=== PATIENT | female | born 1970 | race Caucasian/White ===

== ENCOUNTER 2022-03-02 07:55 | Outpatient (CLI) | payer BC, SELFPAY ==
[2022-03-02 08:28] LABS: Hematocrit 37.5 % (37.0-47.0); Hemoglobin 12.6 g/dL (12.0-15.0); Mean Corpuscular HGB Conc 33.6 g/dl (32-36); Mean Corpuscular Hemoglobin 31.5 pg (26-34); Mean Corpuscular Volume 93.8 fl (80-100); Mean Platelet Volume 10.2 fl (7.4-10.4); Platelet Count Result 284 k/mm3 (150-375); Red Cell Distribution Width 11.7 % (11.5-14.5); White Blood Count 6.7 K/mm3 (4.5-10.0)
[2022-03-02 09:10] LABS: Alanine Aminotransferase 17 U/L (6-35); Anion Gap 7 mmol/L (8-16); Aspartate Amino Transferase 27 U/L (14-36); Bilirubin,Total 0.5 mg/dL (0.2-1.3); Blood Urea Nitrogen 12 mg/dL (7-17); Carbon Dioxide 28 mmol/L (22-30); Chloride 100 mmol/L (98-107); Estimated Glomerular Filt Rate > 60; Glucose 93 mg/dL (65-110); Potassium 4.3 mmol/L (3.4-5.0); Sodium 135 mmol/L (137-145)
[2022-03-02 09:11] LABS: Albumin Level 4.5 g/dL (3.5-5.1); Alkaline Phosphatase 66 U/L (38-126); Cholesterol 200 mg/dL (0-200); HDL Direct 70 mg/dL; Triglycerides 139 mg/dL (<150)
[2022-03-02 09:17] LABS: Hemoglobin A1C 4.9 % (<5.7)
[2022-03-02 09:21] LABS: LDL Cholesterol Direct 88 mg/dL
[2022-03-02 09:59] LABS: Hepatitis C Virus Antibody Negative (Negative)
== END 2022-03-02 07:56 | disposition home or self-care (01) ==
LOC: ANHLAB 07:59
PROVIDERS: PCP Obstetrics & Gynecology; Visit Provider Family Medicine
DX: Z00.00 Encounter for general adult medical examination without abnormal findings (principal); K21.9 Gastro-esophageal reflux disease without esophagitis; Z11.59 Encounter for screening for other viral diseases
CPT/HCPCS: 36415; 80053; 80061; 83036; 85027; 86803

== ENCOUNTER 2022-04-29 00:22 | Day surgery (SDC) | payer BC, SELFPAY ==
[2022-04-14 13:44] VITALS: BMI 25.1
--- NOTE | 2022-04-28 16:47 | PM.HPGS ---
History of Present Illness History of Present Illness Consent: Risks, benefits, and alternatives have been discussed and questions answered. Patient agrees to proceed with procedure. Chief complaint: neoplasm screening, GERD Narrative: Danita Maza is a 51 year old female is referred because of persistent problems with acid reflux.? She has been on omeprazole for the past year or so.? If she skips a dose she has significant symptoms.? Even staying on it daily, she needs to supplement with [id number] Pepcid once or twice a day.? Certain foods give her a great deal of difficulty, such as pork, coffee, spicy foods.? She denies , nausea, vomiting or chronic abdominal pain.? ? If she has a cup of coffee in the morning she my be okay but if she has a 2nd cup she will be miserable.? When she gets pain, it is primarily in the epigastric area and will last for hours if not all day.? Even adding lemon pepper to her food will cause the symptoms. ? She occasionally has dysphagia or feeling that food is not going down fast, this is mostly when she eats too quickly. She has not had a colonoscopy.? Review of Systems Review of Systems: All systems reviewed & are unremarkable except as noted in HPI and below PMFSH Past Medical History Medical History Allergies Surgical History Surgical History Hx of hysterectomy Hx of prior ablation treatment Hx of tubal ligation Family History Family History Father Diabetes mellitus Hypertension Cerebrovascular accident Mother Asthma Hypertension Depression Social History Social History Smoking status: Former smoker Alcohol intake: current Drinks per week: 12 Alcohol use details: social Substance use: never Substance use type: does not use Living arrangements: with family Spiritual care concerns: No Meds Home Medications and Allergies Home Medications Medication Instructions Recorded Confirmed Type estradiol 2 mg tablet 2 mg PO DAILY 03/22/22 04/29/22 History omeprazole 40 mg capsule,delayed 40 mg PO DAILY 03/22/22 04/29/22 History release Allergies Allergy/AdvReac Type Severity Reaction Status Date / Time cows milk Allergy Nausea and Uncoded 04/29/22 10:08 Vomiting Exam Const: General: alert Orientation/consciousness: patient oriented x3 Resp: Auscultation: clear to auscultation bilaterally Cardio: Rhythm: regular rhythm GI: GI Palp: Yes Soft to palpation and No Tenderness to palpation present (GI) Neuro: General: patient oriented x3 Assessment and Plan Assessment and plan (1) Epigastric pain: Code(s): R10.13 - Epigastric pain Status: Acute Assessment and Plan: EGD with possible biopsy or dilatation or cautery. (2) Encounter for colorectal cancer screening: Code(s): Z12.11 - Encounter for screening for malignant neoplasm of colon; Z12.12 - Encounter for screening for malignant neoplasm of rectum Status: Acute Assessment and Plan: Colonoscopy with possible biopsy or polypectomy or cautery or injection of substances.
[2022-04-29 10:09] VITALS: BP 126/56; PULSE 70; RESP 20; TEMP 36.1; O2SAT 100
[2022-04-29] MEDS: LACTATED RINGERS 1,000 ML 150 ML IV CONT (10:23)
--- NOTE | 2022-04-29 10:39 | P.PNAN_ITS ---
Anes - Initial Pre Proc Eval Procedure: Operation Date: 04/29/22 11:00 Proposed Procedures p Esophagogastroduodenoscopy & Screening Colonoscopy - Keron Lin MD Date/Time: 04/29/22 10:39 Surgeon: Keron Lin MD Pre Op Diagnosis: neoplasm screening, GERD Patient Data Age: 51 Gender: F Height: 1.65 m Weight: 65.6 kg Last Vital Signs Temp 97.0 F L 04/29/22 10:09 Pulse 70 04/29/22 10:09 Resp 20 04/29/22 10:09 BP 126/56 L 04/29/22 10:09 Pulse Ox 100 04/29/22 10:09 O2 Del Method Room Air 04/29/22 10:09 Allergies Allergy/AdvReac Type Severity Reaction Status Date / Time cows milk Allergy Nausea and Uncoded 04/29/22 10:08 Vomiting Home Medications Medication Instructions Recorded Confirmed Type estradiol 2 mg tablet 2 mg PO DAILY 03/22/22 04/29/22 History omeprazole 40 mg capsule,delayed 40 mg PO DAILY 03/22/22 04/29/22 History release Patient hx anesthesia problems: none Family hx anesthesia problems: none Results Review: All pre-operative results and documents have been reviewed as part of the pre- operative evaluation. [facility] Past Medical History Medical History Allergies Surgical History Surgical History Hx of hysterectomy Hx of prior ablation treatment Hx of tubal ligation Family History Family History Father Diabetes mellitus Hypertension Cerebrovascular accident Mother Asthma Hypertension Depression Social History Social History Smoking status: Former smoker Alcohol intake: current Drinks per week: 12 Alcohol use details: social Substance use: never Substance use type: does not use Living arrangements: with family Spiritual care concerns: No Anes - Eval Final PreProcedure Day of Procedure 04/29/22 10:39 Patient weight: normal Heart: regular rate and rhythm Lungs: clear to auscultation Airway: Mallampati scale class II Neurological: alert and oriented Last oral intake: >/= 8 hours ASA classification: II Emergent: no Anesthetic plan: proceed Anesthesia type and monitoring: general GIVS and standard monitoring Results Review: All pre-operative results and documents have been reviewed as part of the pre- operative evaluation. Informed Consent: The patient's anesthetic plan and its attendant risks and benefits were discussed with the patient/family/POA. Questions were solicited and answers provided to the satisfaction of the patient/family/POA.
[2022-04-29] MEDS: BENZOCAINE (*SP) 60 ML SPRAY CAN (HURRICAINE) 1 SPRAY MUCOUS MEM (10:47)
--- NOTE | 2022-04-29 11:16 | SUR.OPER ---
EGD START: 1052; END: 1057. COLONOSCOPY START: 1105; END: 1115.
[2022-04-29 11:20] VITALS: BP 81/43; PULSE 64; RESP 13; O2SAT 99
[2022-04-29 11:30] VITALS: BP 111/88; PULSE 64; RESP 13; O2SAT 99
[2022-04-29 11:40] VITALS: BP 94/57; PULSE 66; RESP 15; O2SAT 100
== END 2022-04-29 11:52 | disposition home or self-care (01) ==
PROVIDERS: PCP Family Medicine; Referring Provider Obstetrics & Gynecology; Visit Provider Internal Medicine Gastroenterology
PROC: 0DJ08ZZ Inspection of Upper Intestinal Tract, Via Natural or Artificial Opening Endoscopic (ICD-10-PCS; CPT 43235; principal; 2022-04-29 11:00)
DX: Z12.11 Encounter for screening for malignant neoplasm of colon (principal); K21.9 Gastro-esophageal reflux disease without esophagitis; Z87.891 Personal history of nicotine dependence; R10.13 Epigastric pain
CPT/HCPCS: 45378; 43239; 87081; 88305; J2704; J7120

== ENCOUNTER 2024-01-29 12:30 | Outpatient (RCR) | payer OTHER, SELFPAY ==
[2023-11-16 12:35] VITALS: BP_SYST 75
--- NOTE | 2023-11-16 16:31 | PTOPEVAL1 ---
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 Pain has decreased since onset. Quick DASH self rating of 43% limitation in activity. She works at the hospital office and computer tasks. With the evaluation: L shoulder with decreased active ROM and strength with poor standing position of shoulder and thoracic area; pain over anterior shoulder/ biceps insertion. Skilled PT services are indicated for treatment of L shoulder tendonitis: modalities to decrease pain, therapeutic exercises to increase ROM and strength of shoulder with education for home exercises and posture correction. Plan of Care Interventions Electrical Stimulation,Hot Pack/Cold Pack,Manual Therapy,Neuro Re-education,Patient Education,Therapeutic Activities,Therapeutic Exercise,Ultrasound,Other Other Interventions taping, dry needling PT Services Indicated Yes Treatment Frequency and 2x/wk for 8 visits total Duration These treatments will address the objective and functional deficits as defined above. The patient will be advanced safely and appropriately in order for the patient to progress towards his/her prior level of function. Additional exercises will be introduced and as well as a comprehensive home exercise program upon discharge, if neede
--- NOTE | 2023-11-16 16:32 | OPREHPOC ---
Outpatient Therapy Plan of Care This is a Multidisciplinary Plan of Care that may contain components documented by all disciplines (PT, OT, and ST.) PT Problem 1 PT Problem #1 Knowledge Deficit PT Goal 1 Goal *indep with HEP PT Problem 2 PT Problem #2 Pain PT Goal 1 Goal 1* pt report pain at worst rating of 3/10 2* pt report times of NO pain 3* self rating of Quick DASH of 20% limitation 4* pt report NO awakening from sleep due to shoulder pain PT Problem 3 PT Problem #3 Impaired Flexibility PT Goal 1 Goal increase active L shoulder ROM to improve self care and home ability standing active ROM: 1* flexion 140' 2* abduction 120' 3* IR- reach behind back, palm to above waist PT Problem 4 PT Problem #4 Impaired Strength PT Goal 1 Goal increase strength of L Shoulder to improve use of L arm for self care, home and work tasks: standing L shoulder motions x 5 reps 1* flexion to 90' with 3# hand weight 2* abduction to 90' with 2# hand weight 3* ER with elbow at side with 3# hand weight
--- NOTE | 2023-12-21 13:59 | OPREHPOC ---
Outpatient Therapy Plan of Care This is a Multidisciplinary Plan of Care that may contain components documented by all disciplines (PT, OT, and ST.) PT Problem 1 PT Problem #1 Knowledge Deficit PT Goal 1 Goal *indep with HEP Target Visit 8 Progress Met Comment 12-21-23 progress met goal continue towards goal PT Goal 2 Target Visit 16 PT Problem 2 PT Problem #2 Pain PT Goal 1 Goal 1* pt report pain at worst rating of 3/10 2* pt report times of NO pain 3* self rating of Quick DASH of 20% limitation 4* pt report NO awakening from sleep due to shoulder pain Target Visit 8 Progress Not Met Comment 12-21-23 progress goals not met continue towards goals PT Goal 2 Target Visit 16 PT Problem 3 PT Problem #3 Impaired Flexibility PT Goal 1 Goal increase active L shoulder ROM to improve self care and home ability standing active ROM: 1* flexion 140' 2* abduction 120' 3* IR- reach behind back, palm to above waist Target Visit 8 Progress Not Met Comment 12-21-23 progress goals not met continue towards goals PT Goal 2 Target Visit 16 PT Problem 4 PT Problem #4 Impaired Strength PT Goal 1 Goal increase strength of L Shoulder to improve use of L arm for self care, home and work tasks: standing L shoulder motions x 5 reps 1* flexion to 90' with 3# hand weight 2* abduction to 90' with 2# hand weight 3* ER with elbow at side with 3# hand weight Target Visit 8 Progress Not Met Comment
--- NOTE | 2023-12-21 13:59 | PTOPPROG ---
Assessment and note entered by Sunitha Dominguez, PT Progress Information Assessment Status Progress Diagnosis L shoulder pain Onset Sep 28, 2023 Subjective Information shoulder is doing better, still have some pain in neck and front of shoulder; have been doing stretches during day and correcting posture; want to continue with more therapy; pain range of 1-5/10;awaken from sleep 2-3x/night Assessment PT Clinical Summary Danita has received 8 PT sessions. Compared to the initial evaluation: pain from 1-7/ 10 to 1-5/10; sleeping is still disrupted by pain with rolling onto her L side, 2-3 x/night; self assessment Quick DASH is worse from 43 to 48% limitation in activity; active ROM of L shoulder has improved slightly, but still limited in all motions and pain with all motions, IR most painful education for HEP, posture and body mechanics. L shoulder AROM: flexion 110', abduction 85', IR- reach behind back, palm to buttock and ER- reach to back of head, palm to behind ear. The goals were partially met. Continue PT treatment. Plan of Care Interventions Electrical Stimulation,Hot Pack/Cold Pack,Manual Therapy,Neuro Re-education,Patient Education,Therapeutic Activities,Therapeutic Exercise,Ultrasound,Other Other Interventions taping PT Services Indicated Yes Treatment Frequency and 1-2x/wk for 8 additional visits Duration These treatments will address the objective and functional deficits as defined above. The patient will be advanced safely and appropriately in order for the patient to progress towards his/her prior level of function. Additional exercises will be introduced and as well as a comprehensive home exercise program upon discharge, if needed, ?to ensure carryover of functional gains achieved in the clinic. This treatment plan has been reviewed and agreement upon by the patient.
--- NOTE | 2023-12-27 12:30 | PCPTNOTE ---
Patient did not show up for scheduled appointment this date. Called and left voicemail about missed appointment. Informed of her next appointment on 01/08/24 @13:30. This is Pt's first N/S.
[2024-01-29 12:35] VITALS: BP_SYST 85
--- NOTE | 2024-01-29 13:25 | OPREHPOC ---
Outpatient Therapy Plan of Care This is a Multidisciplinary Plan of Care that may contain components documented by all disciplines (PT, OT, and ST.) PT Problem 1 PT Problem #1 Knowledge Deficit PT Goal 1 Goal *indep with HEP Target Visit 8 Progress Met Comment 12-21-23 progress met goal continue towards goal PT Goal 2 Target Visit 16 Progress Met Comment 01-28-23 progress goal met continue towards goal 23 visits PT Problem 2 PT Problem #2 Pain PT Goal 1 Goal 1* pt report pain at worst rating of 3/10 2* pt report times of NO pain 3* self rating of Quick DASH of 20% limitation 4* pt report NO awakening from sleep due to shoulder pain Target Visit 8 Progress Not Met Comment 12-21-23 progress goals not met continue towards goals PT Goal 2 Target Visit 16 Progress Partially Met Comment 01-28-23 progress goal 1 met; #4 improved to 1x/night continue towards goals 23 visits PT Problem 3 PT Problem #3 Impaired Flexibility PT Goal 1 Goal increase active L shoulder ROM to improve self care and home ability standing active ROM: 1* flexion 140' 2* abduction 120' 3* IR- reach behind back, palm to above waist Target Visit 8 Progress Not Met Comment 12-21-23 progress goals not met continue towards goals
--- NOTE | 2024-01-29 13:28 | PTOPPROG ---
Assessment and note entered by Sunitha Dominguez, PT Progress report Assessment Status Progress Diagnosis L shoulder pain Onset Sep 28, 2023 Subjective Information pain has changed-- was down arm and now feels like inside my shoulder; pain is less, but still not moving my arm very well; doing all the exercises at home; awaiting call for an appointment for ortho dr; Assessment PT Clinical Summary Danita has received a total of 15 PT sessions. Compared to the last reevaluation: pain has decreased from 1-5/10 to 1-3/10, and no longer has radicular pain into L UE to elbow; reported sleeping tolerance from awakening 2-3x/night to 1x /night due to shoulder pain; self assessment Quick DASH rating from 48 to 43% limitation in activity; increase strength with use of hand weight 2 and 3#; active ROM L shoulder is same: flexion 110', abduction 85', IR- reach behind back, palm to buttock and ER- reach to back of head, palm to in front of ear. The goals were partially achieved. Continue PT. She is going to have an ortho consult. Plan of Care Interventions Electrical Stimulation,Hot Pack/Cold Pack,Manual Therapy,Neuro Re-education,Patient Education,Therapeutic Activities,Therapeutic Exercise,Ultrasound,Other Other Interventions taping PT Services Indicated Yes Treatment Frequency and 2x/wk for 8 visits Duration These treatments will address the objective and functional deficits as defined above. The patient will be advanced safely and appropriately in order for the patient to progress towards his/her prior level of function. Additional exercises will be introduced and as well as a comprehensive home exercise program upon discharge, if needed, ?to ensure carryover of functional gains achieved in the clinic. This treatment plan has been reviewed and agreement upon by the patient.
--- NOTE | 2024-02-13 15:45 | PCPTNOTE ---
This treatment is being continued on visit number [id number]. Please see documentation on both accounts to view progress. Completed interventions, outcomes, and problems have been marked as Inactive to facilitate the copying of the Care plan routine for recurring accounts.
== END 2024-02-13 10:53 | disposition home or self-care (01) ==
LOC: ANHPT 12:30
PROVIDERS: PCP Family Medicine; Visit Provider Physician Assistant Medical
DX: M25.512 Pain in left shoulder (principal)
CPT/HCPCS: 97014; 97110; 97140; 97161; 97530; 99199; G0283

== ENCOUNTER 2024-02-14 13:45 | Outpatient (CLI) | payer OTHER, SELFPAY ==
--- NOTE | ~2024-02-14 | XR_ITS ---
EXAMINATION: XR shoulder LT min 2V DATE: 02/14/2024 14:15 INDICATION: Left shoulder pain. TECHNIQUE: 4 views of left shoulder were obtained. COMPARISON: None. FINDINGS: Bone alignment is normal. No fracture. There is mild osteoarthritis of glenohumeral joint a nd acromioclavicular joint. Calcified left lung nodules are consistent with old granulomatous disease . IMPRESSION: 1. Mild polyarticular osteoarthritis. Reviewed, dictated and finalized at location E.
== END 2024-02-14 13:46 | disposition home or self-care (01) ==
PROVIDERS: PCP Family Medicine; Visit Provider Family Medicine
DX: M19.012 Primary osteoarthritis, left shoulder (principal)
CPT/HCPCS: 73030

== ENCOUNTER 2024-04-03 07:43 | Outpatient (CLI) | payer OTHER, SELFPAY ==
[2024-04-03 09:22] LABS: Alanine Aminotransferase 38 U/L (6-35); Albumin Level 4.5 g/dL (3.5-5.1); Alkaline Phosphatase 47 U/L (38-126); Anion Gap 10 mmol/L (4-12); Aspartate Amino Transferase 41 U/L (14-36); Bilirubin,Total 0.5 mg/dL (0.2-1.3); Blood Urea Nitrogen 12 mg/dL (7-17); Calcium 9.4 mg/dL (8.4-10.2); Carbon Dioxide 27 mmol/L (22-30); Chloride 97 mmol/L (98-107); Cholesterol 193 mg/dL (0-200); Estimated Glomerular Filt Rate > 60; Glucose 89 mg/dL (65-110); HDL Direct 81 mg/dL; Potassium 4.4 mmol/L (3.4-5.0); Sodium 134 mmol/L (137-145); Triglycerides 77 mg/dL (<150)
[2024-04-03 09:32] LABS: LDL Cholesterol Direct 86 mg/dL
== END 2024-04-03 07:44 | disposition home or self-care (01) ==
LOC: ANHLAB 07:45
PROVIDERS: PCP Family Medicine; Visit Provider Family Medicine
DX: E78.2 Mixed hyperlipidemia (principal); Z00.00 Encounter for general adult medical examination without abnormal findings
CPT/HCPCS: 36415; 80053; 80061

== ENCOUNTER 2024-05-13 12:30 | Outpatient (RCR) | payer OTHER, SELFPAY ==
[2024-02-13 10:54] VITALS: BP_SYST 85
--- NOTE | 2024-02-13 15:47 | PCPTNOTE ---
This treatment is being continued from visit number [id number]. Please see documentation on both accounts to view progress. Completed interventions, outcomes, and problems have been marked as Inactive to facilitate the copying of the Care plan routine for recurring accounts.
[2024-03-07 12:30] VITALS: BP_SYST 85
--- NOTE | 2024-03-07 13:38 | OPREHPOC ---
Outpatient Therapy Plan of Care This is a Multidisciplinary Plan of Care that may contain components documented by all disciplines (PT, OT, and ST.) PT Problem 1 PT Problem #1 Knowledge Deficit PT Goal 1 Goal *indep with HEP Target Visit 8 Progress Met Comment 12-21-23 progress met goal continue towards goal PT Goal 2 Target Visit 16 Progress Met Comment 01-28-23 progress goal met continue towards goal 23 visits 03-07-24 progress goal met continue to progress HEP Target visits: 31 PT Problem 2 PT Problem #2 Pain PT Goal 1 Goal 1* pt report pain at worst rating of 3/10 2* pt report times of NO pain 3* self rating of Quick DASH of 20% limitation 4* pt report NO awakening from sleep due to shoulder pain Target Visit 8 Progress Not Met Comment 12-21-23 progress goals not met continue towards goals PT Goal 2 Target Visit 16 Progress Partially Met Comment 01-28-23 progress goal 1 met; #4 improved to 1x/night continue towards goals 23 visits 03-07-24 progress goal 4 met; improved with #3 to 30% continue towards goals Target visits: 31 PT Problem 3 PT Problem #3 Impaired Flexibility PT Goal 1 Goal increase active L shoulder R
--- NOTE | 2024-03-07 13:38 | PTOPPROG ---
Assessment and note entered by Sunitha Dominguez, PT Progress Report Assessment Status Progress Diagnosis L shoulder pain Onset Sep 28, 2023 Subjective Information shoulder is not hurting as much; ultrasound and needling are helping; have been doing the exercises and getting back to doing yoga; have an appointment next week with ortho dr. want to continue with therapy. PAIN: range in the past week 1-5/10; increase pain: when first wake up in the morning; staying still- gets stiff decrease pain: ibuprofen or tylenol 2x/day; move shoulder, heat, biofreeze; have been able to sleep through the night past few nights, without awakening due to shoulder pain; Assessment PT Clinical Summary Danita has received a total of 21 PT sessions. Compared to the last progress report: pain from 1 -3/10 to 1-5/10; is now able to sleep through the night; Self assessment with Quick DASH rating from 43% to 30% limitation in activity level; use of modalities to decrease pain--taping, dry needling, ultrasound, electrical stim, manual therapy and heat; increase in passive shoulder flexion from 110' to 130', with other ranges about the same; ROM of L shoulder: active/passive: flexion 110'/ 130'; abduction 80'/ 85'; IR- reach behind back, palm to buttocks; ER- reach to back of head - palm in front of ear. The goals were partially achieved. Continue PT treatment. She is to have ortho consultation appointment next week. Plan of Care Interventions Electrical Stimulation,Hot Pack/Cold Pack,Manual Therapy,Neuro Re-education,Therapeutic Activities, Therapeutic Exercise,Ultrasound,Other, pt education Other Interventions dry needling, IASTM, taping PT Services Indicated Yes Treatment Frequency and 2x/wk for 10 visits Duration These treatments will address the objective and functional deficits as defined above. The patient will be advanced safely and appropriately in order for the patient to progress towards his/her prior level of function. Additional exercises will be introduced and as well as a comprehensive home exercise program upon discharge, if needed, ?to ensure carryover of functional gains achieved in the clinic. This treatment plan has bee
[2024-04-26 12:30] VITALS: BP_SYST 90
--- NOTE | 2024-04-26 16:31 | PTOPPROG ---
Assessment and note entered by Sunitha Dominguez, PT Progress Report Assessment Status Progress Diagnosis L shoulder pain Onset Sep 28, [address] said to continue therapy and if get to place where not making any progress, let him know and may need to get MRI; am doing more with the arm-- able to carry better, stretch more, do planks, able to put pressure on my arm; last weekend was able to do yard work, plant and rake; want to continue with therapy; PAIN range in the past week of 0-7/10; pain over anterior shoulder; pulls most stretching, but normal activity shoulder is OK; increase pain with ER of shoulder; using heat and rest to ease pain Assessment PT Clinical Summary Danita has received a total of 30 PT sessions. Compared to the last progress report: she has improved with L shoulder strength and ROM--all motions; self assessment from 30 to 27% limiation in activity with Quick DASH; she reports using arm more, doing fitness weighted exercises at gym 3x/week and feels she has more strength and motion ROM: L shoulder active/ passive: flexion 13'/ 140' abduction 85'/ 90'; active in standing: IR- reach behind back, palm to lateral edge of sacrum; ER- palm to back of head The goals were partially met. Continue PT to further increase ROM and strength of L shoulder. Plan of Care Interventions Electrical Stimulation,Hot Pack/Cold Pack,Manual Therapy,Neuro Re-education,Therapeutic Activities, Therapeutic Exercise,Ultrasound,Other, pt education Other Interventions dry needling, IASTM, taping PT Services Indicated Yes Treatment Frequency and 1-2x/wk for 10 visits Duration These treatments will address the objective and functional deficits as defined above. The patient will be advanced safely and appropriately in order for the patient to progress towards his/her prior level of function. Additional exercises will be introduced and as well as a comprehensive home exercise program upon discharge, if needed, ?to ensure carryover of functional gains achieved in the clinic. This treatment plan has been reviewed and agreement upon by the patient.
--- NOTE | 2024-05-16 09:50 | PCPTNOTE ---
This treatment is being continued on visit number [id number]. Please see documentation on both accounts to view progress. Completed interventions, outcomes, and problems have been marked as Inactive to facilitate the copying of the Care plan routine for recurring accounts.
== END 2024-05-14 14:54 | disposition home or self-care (01) ==
LOC: ANHPT 12:30
PROVIDERS: PCP Family Medicine; Visit Provider Physician Assistant Medical
DX: M25.512 Pain in left shoulder (principal)
CPT/HCPCS: 97014; 97035; 97110; 97140; 97530; G0283

== ENCOUNTER 2024-06-04 13:39 | Outpatient (CLI) | payer OTHER, SELFPAY ==
[2024-06-10 01:18] LABS: Estradiol, Ultrasensitive 145 pg/mL
[2024-06-11 08:28] LABS: Testosterone Free 0.9 pg/mL (0.1-6.4); Testosterone Total 13 ng/dL (2-45)
== END 2024-06-04 13:40 | disposition home or self-care (01) ==
LOC: ANHLAB 13:40
PROVIDERS: Obstetrics & Gynecology; PCP Family Medicine; Visit Provider Internal Medicine Hematology & Oncology
DX: N95.1 Menopausal and female climacteric states (principal)
CPT/HCPCS: 36415; 82670; 84402; 84403

== ENCOUNTER 2024-07-16 07:28 | Outpatient (CLI) | payer OTHER, SELFPAY ==
[2024-07-16 14:10] LABS: Anion Gap 6 mmol/L (4-12); Blood Urea Nitrogen 16 mg/dL (7-17); Calcium 9.3 mg/dL (8.4-10.2); Carbon Dioxide 28 mmol/L (22-30); Chloride 101 mmol/L (98-107); Estimated Glomerular Filt Rate > 60; Glucose 110 mg/dL (65-110); Potassium 4.3 mmol/L (3.4-5.0); Sodium 135 mmol/L (137-145)
[2024-07-16 14:11] LABS: Sodium Urine Random 33 meq/L
[2024-07-17 11:58] LABS: Osmolality, Urine 153 mOsm/kg (50-1200)
== END 2024-07-16 07:29 | disposition home or self-care (01) ==
PROVIDERS: Student in an Organized Health Care Education/Training Program; PCP Family Medicine; Visit Provider Family Medicine
DX: E87.1 Hypo-osmolality and hyponatremia (principal)
CPT/HCPCS: 36415; 80048; 83930; 83935; 84300

== ENCOUNTER 2024-07-22 09:57 | Outpatient (CLI) | payer OTHER, SELFPAY ==
--- NOTE | ~2024-07-22 | DEXA_ITS ---
Bone Density Report Name: ARIS JADE Age: 53 Sex: Female Ethnicity: White Date of : 1970 Indication: postmenopausal; screening for osteoporosis; Referring Provider: LYNDON MÉNDEZ Study: Bone densitometry was performed. Exam Date: July 22, 2024 Accession number: [id number] Bone Density: Region BMD T-score Z-score Classification AP Spine(L1-L4) 0.989 -0.5 0.4 Normal Femoral Neck (Left) 0.638 -1.9 -1.0 Osteopenia Total Hip (Left) 0.760 -1.5 -0.9 Osteopenia Femoral Neck (Right) 0.626 -2.0 -1.1 Osteopenia Total Hip (Right) 0.730 -1.7 -1.2 Osteopenia Total Hip Mean 0.745 -1.6 -1.1 Osteopenia World Health Organization criteria for BMD impression classify patients as: Normal (T-score at or above -1.0), Osteopenia (T-score between -1.0 and -2.5), or Osteoporosis (T-score at or below -2.5). 10-year Fracture Risk(1): Major Osteoporotic Fracture 6.1% Hip Fracture 0.7% Reported Risk Factors: [place] (), Neck BMD=0.626, BMI=21.4 (1) FRAX(R) Version 3.08. Fracture probability calculated for an untreated patient. Fracture probability may be lower if the patient has received treatment. Clinical Information Provided by Patient: Patient maximum height was 65 Does not regularly consume dairy products Drinks caffeinated beverages Onset of menses at age 16 Number of children 3 Impression: The patient has low bone mass, based on the Right Femoral Neck T-score. The patient has an estimated ten-year risk of hip fracture of 0.7% and an estimated ten-year risk of major fracture of 6.1%, based on the WHO FRAX algorithm. Discussion: BONE DENSITY IS LOW AT ONE OR MORE SKELETAL SITES. This patient's lowest T-score is low at one or more skeletal sites. It meets the World Health Organization's (WHO) criteria for ?low bone mass? (T-score between -1.0 and -2.5). The patient's 10-year risk of fracture as calculated by FRAX is less than the threshold where pharmacological therapy is recommended by the National Osteoporosis Foundation (NOF). However, all treatment decisions require clinical judgment and consideration of individual patient factors, including patient preferences, comorbidities, previous drug use, risk factors not captured in the FRAX model (e.g., frailty, falls, vitamin D deficiency, increased bone turnover, interval significant decline in bone density) and possible under or overestimation of fracture risk by FRAX. The patient should follow a healthful lifestyle (good nutrition with adequate calcium and vitamin D, and appropriate weight-bearing exercise). Follow-Up: Consider repeating this study in 2 to 3 years to reassess this patient's status, or sooner if there is some new clinical indication. Reported by: GENOVEVA on 07/22/2024 10:27:00 AM. Reviewed, dictated and finalized at location [facility]
== END 2024-07-22 09:58 | disposition home or self-care (01) ==
LOC: ANHIMG 09:57
PROVIDERS: PCP Family Medicine; Visit Provider Family Medicine
DX: Z78.0 Asymptomatic menopausal state (principal); M85.852 Other specified disorders of bone density and structure, left thigh; M85.851 Other specified disorders of bone density and structure, right thigh
CPT/HCPCS: 77080

== ENCOUNTER 2024-08-05 12:30 | Outpatient (RCR) | payer OTHER, SELFPAY ==
[2024-05-14 14:54] VITALS: BP_SYST 90
--- NOTE | 2024-05-16 09:52 | PCPTNOTE ---
This treatment is being continued from visit number [id number]. Please see documentation on both accounts to view progress. Completed interventions, outcomes, and problems have been marked as Inactive to facilitate the copying of the Care plan routine for recurring accounts.
--- NOTE | 2024-05-27 17:53 | OPREHPOC ---
Outpatient Therapy Plan of Care This is a Multidisciplinary Plan of Care that may contain components documented by all disciplines (PT, OT, and ST.) PT Problem 1 PT Problem #1 Knowledge Deficit PT Goal 1 Goal / Goal Update *indep with HEP Target Visit 8 Progress Met PT Goal 2 Goal / Goal Update 04-26-24 progress met goals from 03-07-24 progress report-- refer to it in EMR; due to update glitch, they were deleted NEW GOAL: * progression of HEP Target Visit 41 Progress Met PT Problem 2 PT Problem #2 Pain PT Goal 1 Goal / Goal Update 1* pt report pain at worst rating of 3/10 2* pt report times of NO pain 3* self rating of Quick DASH of 20% limitation 4* pt report NO awakening from sleep due to shoulder pain Target Visit 46 Progress Not Met PT Goal 2 Goal / Goal Update 04-26-24 progress met goals 2,4 from 03-07-24 progress report-- refer to it in EMR; due to update glitch, they were deleted NEW GOALS: 1* pt report pain rating at worst of 3/10 2* self assessment with Quick DASH rating of 20% limitation in activity level Target Visit 46 Progress Partially Met PT Problem 3 PT Problem #3 Impaired Flexibility PT Goal 1 Goal / Goal Update increase active L shoulder ROM to improve self care and home ability standing active ROM: 1* flexion 140' 2* abduction 120' 3* IR- reach behind back, palm to above waist Target Visit 8 Progress Not Met PT Goal 2 Goal / Goal Update 04-26-24 progress goals not met from 03-07-24 progress report, improved with all 3 goals- refer to it in EMR; due to update glitch, they were deleted Continue with GOALS: active L shoulder ROM in standin* flexion 140' 2* abduction 120' 3* IR- reaching behind back, palm to above waist 4* supine shoulder ER 60', with shoulder abduction to 55' Target Visit 46 Progress Not Met PT Problem 4 PT Problem #4 Impaired Strength PT Goal 1 Goal / Goal Update increase strength of L Shoulder to improve use of L arm for self care, home and work tasks: standing L shoulder motions x 5 reps 1* flexion to 90' with 3# hand weight 2* abduction to 90' with 2# hand weight 3* ER with elbow at side with 3# hand weight Target Visit 8 Progress Not Met PT Goal 2 Goal / Goal Update 04-26-24 progress met goals 1,3 from 03-07-24 progress report-- refer to it in EMR; due to update glitch, they were deleted NEW GOALS: in standing, hand weight x 5 reps 1* flexion to 120' with 5# 2* abduction to 95' with 4# Target Visit 46 Progress Partially Met
--- NOTE | 2024-05-27 17:53 | PTOPPROG ---
Assessment and note entered by Niall Blanco, PT Evaluation Information Assessment Status Progress Diagnosis L shoulder pain Onset Sep 28, 2023 Subjective Information Reports that she has been released by MD at this time. Overall feels good and that she is just lacking a little bit of end range terminal active ROM. She is unsure if she is at a point in which she is fully functional. She continues to have occasional pain with overhead activity. No difficulty with sleeping. Lifting has become much easier. Assessment PT Clinical Summary Patient making steady but slow progress with both shoulder strength and ROM. At this point continues to be limited by pain with motion and having difficulty working through objective plain, but functional plain greatly improved. Will continue to benefit from skilled therpay to address deficits to maximize functional reach and ADL performance. Plan of Care Interventions Therapeutic Exercise,Other,Ultrasound,Manual Therapy,Neuro Re-education,Therapeutic Activities, Hot Pack/Cold Pack,Electrical Stimulation Other Interventions dry needling, IASTM, taping PT Services Indicated Yes Treatment Frequency and 1-2x/week for 8 visits Duration These treatments will address the objective and functional deficits as defined above. The patient will be advanced safely and appropriately in order for the patient to progress towards his/her prior level of function. Additional exercises will be introduced and as well as a comprehensive home exercise program upon discharge, if needed, ?to ensure carryover of functional gains achieved in the clinic. This treatment plan has been reviewed and agreement upon by the patient.
--- NOTE | 2024-07-01 17:42 | OPREHPOC ---
Outpatient Therapy Plan of Care This is a Multidisciplinary Plan of Care that may contain components documented by all disciplines (PT, OT, and ST.) PT Problem 1 PT Problem #1 Knowledge Deficit PT Goal 1 Goal / Goal Update *indep with HEP Target Visit 8 Progress Met PT Goal 2 Goal / Goal Update 04-26-24 progress met goals from 03-07-24 progress report-- refer to it in EMR; due to update glitch, they were deleted NEW GOAL: * progression of HEP Target Visit 41 Progress Met PT Problem 2 PT Problem #2 Pain PT Goal 1 Goal / Goal Update 1* pt report pain at worst rating of 3/10 2* pt report times of NO pain 3* self rating of Quick DASH of 20% limitation 4* pt report NO awakening from sleep due to shoulder pain Target Visit 54 Progress Not Met PT Goal 2 Goal / Goal Update 04-26-24 progress met goals 2,4 from 03-07-24 progress report-- refer to it in EMR; due to update glitch, they were deleted NEW GOALS: 1* pt report pain rating at worst of 3/10 2* self assessment with Quick DASH rating of 20% limitation in activity level Target Visit 54 Progress Partially Met PT Problem 3 PT Problem #3 Impaired Flexibility PT Goal 1 Goal / Goal Update increase active L shoulder ROM to improve self care and home ability standing active ROM: 1* flexion 140' 2* abduction 120' 3* IR- reach behind back, palm to above waist Target Visit 8 Progress Not Met PT Goal 2 Goal / Goal Update 04-26-24 progress goals not met from 03-07-24 progress report, improved with all 3 goals- refer to it in EMR; due to update glitch, they were deleted Continue with GOALS: active L shoulder ROM in standin* flexion 140' 2* abduction 120' 3* IR- reaching behind back, palm to above waist 4* supine shoulder ER 60', with shoulder abduction to 55' Target Visit 54 Progress Not Met PT Problem 4 PT Problem #4 Impaired Strength PT Goal 1 Goal / Goal Update increase strength of L Shoulder to improve use of L arm for self care, home and work tasks: standing L shoulder motions x 5 reps 1* flexion to 90' with 3# hand weight 2* abduction to 90' with 2# hand weight 3* ER with elbow at side with 3# hand weight Target Visit 8 Progress Not Met PT Goal 2 Goal / Goal Update 04-26-24 progress met goals 1,3 from 03-07-24 progress report-- refer to it in EMR; due to update glitch, they were deleted NEW GOALS: in standing, hand weight x 5 reps 1* flexion to 120' with 5# 2* abduction to 95' with 4# Target Visit 4 Progress Partially Met
--- NOTE | 2024-07-01 17:43 | PTOPPROG ---
Assessment and note entered by Niall Blanco, PT Evaluation Information Assessment Status Progress Diagnosis L shoulder pain Onset Sep 28, 2023 Subjective Information Reports that overall she is doing much better. Not currently having any pain at rest but still has some with movement, especially reaching behind her back. Still having trouble reaching over her head and behind her back. Se has been trying to be consistent with ROM and would like to continue with therapy to continue to address. Assessment PT Clinical Summary Patient presents with continued shoulder capsular mobility deficits and active functional reach deficits with functional strength loss. Will continue to benefit from skilled therapy to address these deficits to improve active reach, capsular mobility, and self care. Plan of Care Interventions Therapeutic Exercise,Other,Ultrasound,Manual Therapy,Neuro Re-education,Therapeutic Activities, Hot Pack/Cold Pack,Electrical Stimulation Other Interventions dry needling, IASTM, taping PT Services Indicated Yes Treatment Frequency and 1x/week for 8 visits Duration These treatments will address the objective and functional deficits as defined above. The patient will be advanced safely and appropriately in order for the patient to progress towards his/her prior level of function. Additional exercises will be introduced and as well as a comprehensive home exercise program upon discharge, if needed, ?to ensure carryover of functional gains achieved in the clinic. This treatment plan has been reviewed and agreement upon by the patient.
--- NOTE | 2024-08-19 08:00 | PCPTNOTE ---
This treatment is being continued on visit number [id number] Please see documentation on both accounts to view progress. Completed interventions, outcomes, and problems have been marked as Inactive to facilitate the copying of the Care plan routine for recurring accounts.
== END 2024-08-15 23:59 | disposition home or self-care (01) ==
LOC: ANHPT 12:30
PROVIDERS: PCP Family Medicine; Visit Provider Physician Assistant Medical
DX: M25.512 Pain in left shoulder (principal); M75.02 Adhesive capsulitis of left shoulder
CPT/HCPCS: 97035; 97110; 97140

== ENCOUNTER 2024-09-02 12:30 | Outpatient (RCR) | payer OTHER, SELFPAY ==
[2024-08-16 00:04] VITALS: BP_SYST 90
--- NOTE | 2024-08-19 08:01 | PCPTNOTE ---
This treatment is being continued from visit number [id number] Please see documentation on both accounts to view progress. Completed interventions, outcomes, and problems have been marked as Inactive to facilitate the copying of the Care plan routine for recurring accounts.
--- NOTE | 2024-09-02 13:31 | PTOPDC ---
Assessment and note entered by Sunitha Dominguez, Assessment Status Discharge Diagnosis L shoulder pain Onset Sep 28, 2023 Subjective Information shoulder is doing good; am doing everything and not have any pain with using arm; going to the gym and doing exercises --emphasis on scapular muscles; feel like ready to be done with therapy. Reported Pain Level Pain Score 0: Self Report Assessment PT Clinical Summary Danita has received a total of 50 PT sessions, from November 15 to today for L shoulder. She has improved with today's assessment: no pain in shoulder, has tightness with stretching; self assessment Quick DASH rating of 5% limitation in activity level; active L shoulder in standing: flexion 140' abduction 135'; IR- reaching towards back, palm to waist; ER- reach to back of head, fingers to cervical spine; good strength--is doing all of her home and work tasks; education completed for HEP and posture. The goals were partially achieved. Discharge PT. She is to continue with her HEP and stretching to L shoulder joint. Plan of Care PT Services Indicated No
== END 2024-09-02 14:19 | disposition home or self-care (01) ==
LOC: ANHPT 12:30
PROVIDERS: PCP Family Medicine; Visit Provider Physician Assistant Medical
DX: M25.512 Pain in left shoulder (principal); M75.02 Adhesive capsulitis of left shoulder
CPT/HCPCS: 97110; 97140

== ENCOUNTER 2024-09-16 13:01 | Outpatient (CLI) | payer OTHER, SELFPAY ==
--- OUTSIDE RECORDS SUMMARY | 2024-09-16 13:15 | XMS_ITS | Clinical Summary ---
Author Organization [facility] Address [address] [place] [address] Phone Care Team Providers Care Heeler Machine Name Role Phone Unavailable Primary Care Provider Unavailabl e Allergies No known active allergies Medications estradiol (ESTRACE) 2 mg tablet Take 2 mg by mouth daily. Active famotidine (PEPCID) 20 mg tablet Take 20 mg by mouth 2 times daily. Active omeprazole (PriLOSEC) 40 mg Capsule, Delayed Release(E.C.) Take 1 Capsule (40 mg) by mouth daily. 150 Capsule 1 03/19/2021 9:56 AM CDT 12/18/2020 Active estradioL (ESTRACE) 2 mg tablet Take 1 Tablet (2 mg) by mouth daily. 90 Tablet 4 04/02/2022 11:17 AM CDT 04/26/2021 Active esomeprazole (NexIUM) 40 mg Capsule, Delayed Release(E.C.) Take 1 capsule (40 mg total) by mouth every morning before breakfast. 30 Capsule 11 04/02/2022 11:17 AM CDT 01/28/2022 Active Encounters Date Type Department Care Team Description 08/29/2024 External Device Data [facility] Provider, Abstract 08/28/2024 External Device Data [facility] Provider, Abstract 08/27/2024 External Device Data [facility] Provider, Abstract 08/13/2024 External Device Data [facility] Provider, Abstract 07/23/2024 External Device Data [facility] Provider, Abstract from Last 3 Months Immunizations Immunization Administration Dates Next Due Influenza Seasonal Unspecified Formulation IM Social History Tobacco Use Types Packs/Day Years Used Date Smoking Tobacco: Former Alcohol Use Standard Drinks/Week Comments Yes 0 (1 standard drink = 0.6 oz pur e alcohol) Comments No Sex and Gender Information Value Date Recorded Sex Assigned at Not on file Legal Sex Female 9:53 AM COLD MILL SUPERVISOR Gender Identity Not on file Sexual Orientation Not on file Last Filed Vital Signs Vital Sign Reading Time Taken Comments Blood Pressure 106/65 10/07/2019 10:05 AM C[employer] MILL SUPERVISOR Pulse 64 10/07/2019 10:05 AM C[employer] MILL SUPERVISOR Temperature 36.5 C (97.7 F) 10/07/2019 10:05 AM C[employer] MILL SUPERVISOR Respiratory Rate 16 10/07/2019 10:05 AM COLD MILL SUPERVISOR Oxygen Saturation 100% 10/07/2019 10:05 AM COLD MILL SUPERVISOR Inhaled Oxygen Concentration - - Weight 64.4 kg (142 lb) 10/07/2019 6:10 AM COLD MILL SUPERVISOR Height 165.1 cm (5' 5 ) 10/07/2019 6:10 AM COLD MILL SUPERVISOR Body Mass Index 23.63 10/07/2019 6:10 AM COLD MILL SUPERVISOR Plan of Treatment Health Maintenance Due Date Last Done Comments DTAP/TDAP/TD VACCINES (1 - Tdap) 1990 HEPATITIS B VACCINES (1 of 3 - 19+ 3-dose series) 1990 CERVICAL CANCER SCREENING 2001 BREAST CANCER SCREENING 2011 COLORECTAL SCREENING 2016 Colorectal Cancer Screening 2016 FIT-DNA Q 3 years 2016 FIT/FOBT Q 1 year 2016 Flex Sig/CT Colonography Q 5 years 2016 ZOSTER VACCINE (1 of 2) 2021 INFLUENZA VACCINE (#1) 2024 05/07/2021 PNEUMOCOCCAL VACCINE 0-64 YEARS Aged Out No longer eligible based on patient's age to complete this topic Medical Devices Implanted Type Area Assistant Spa Director Device Identifier Shelf Expiration Date Model / Serial / Lot Breast Silicone Smth Rnd Hp [id number] - [id number] Implanted:Qty: 1 on 10/07/2019 by Abdullahi Silva MD at [facility] Mammary Right: Breast MENTOR CLARA 08/07/2023 [id number] / / [id number] Description: Cosmetic- implant brought in by surgeon Breast Silicone Smth Rnd Hp [id number] - [id number] Implanted:Qty: 1 on 10/07/2019 by Abdullahi Silva MD at [facility] Mammary Left: Breast MENTOR CLARA 01/20/2020 [id number] / / [id number] Description: Cosmetic- implant brought in by surgeon Explanted Type Area Assistant Spa Director Device Identifier Shelf Expiration Date Model / Serial / Lot Right Breast Implant Explanted:Qty: 1 on 10/07/2019 by Abdullahi Silva MD at [facility] Right: Breast Left Breast Implant Explanted:Qty: 1 on 10/07/2019 by Abdullahi Silva MD at [facility] Left: Breast Insurance RX [facility] [employer] Member Subscriber Plan / Payer (Ef fective 2023-Present) Name:Danita Maza Relation to Subscriber:Self Name:Danita Maza Subscriber ID:Not on file Payer ID:Not on file Type:RX Commercial Address: [address] Advance Directives For more information, please contact: [phone] * Full Code (Latest Code Status on File) Date Activated Date Inactivated Comments 10/07/2019 8:56 AM 10/07/2019 12:29 PM
--- OUTSIDE RECORDS SUMMARY | 2024-09-16 13:15 | XMS_ITS | Patient Health Summary ---
Author Organization [facility] Address [address] [place] [address] Care Team Providers Care Photography Colorist Name Role Phone Caryn Corbin DO Primary Care Provider [phone] Note from [facility],non-owned Affiliates and Associated Physician Practices is amultiple site organization consisting of ambulatory clinics and hospital sitesin [place], [place], [place] and [place]. This disclosure is being madepursuant to the Care Everywhere program and may not contain all information available regarding this patient. Last updated 18.[facility] Social History Tobacco Use Types Packs/Day Years Used Date Smoking Tobacco: Never Assessed Sex and Gender Information Value Date Recorded Sex Assigned at Not on file Gender Identity Not on file Sexual Orientation Not on file Procedures * MAMMO BILAT IMPLANT SCREEN W SAVANAH(Performed 09/30/2022) Performed for Encounter for screening mammogram for breast cancer * MAMMO BILAT SCREENING W SAVANAH(Performed 07/15/2021) Performed for Encounter for screening breast examination * MAMMO BILAT SCREENING(Performed 07/23/2020) Performed for Encounter for screening breast examination * MAMMO SCREEN DANILO IMPLANTS(Performed 06/22/2016) Performed for Visit for screening mammogram Results * MAMMO BILAT IMPLANT SCREEN W SAVANAH (09/30/2022 3:12 PM REAL ESTATE FINANCIAL ANALYST) Anatomical Region Laterality Modality Breast Bilateral Mammography 09/30/2022 3:27 PM REAL ESTATE FINANCIAL ANALYST Impressions 09/30/2022 3:29 PM REAL ESTATE FINANCIAL ANALYST : No mammographic evidence of malignancy in either breast. ASSESSMENT: BIRADS Category 1: Negative mammogram. RECOMMENDATION: Bilateral screening mammogram in one year. Thank you for allowing us to participate in the care of your patient. [facility] utilizes [employer] as a reminder system to notify patients of their next recommended mammogram. > Interpreting Provider: Ariane Mckeon MD on 09/30/2022 3:29 PM Narrative 09/30/2022 3:29 PM REAL ESTATE FINANCIAL ANALYST EXAMINATION: Digital screening mammogram. Low-dose full-field digital breast tomosynthesis examination was performed with synthetic 2D images. Computer assisted detection was utilized. DATE: 09/30/2022 3:12 PM PRIOR: 07/15/2021 and prior mammograms dating back to 2016. BREAST PARENCHYMAL DENSITY: There are scattered areas of fibroglandular density. FINDINGS: No suspicious masses, areas of architectural distortion or microcalcifications are evident on synthetic 2D mammogram or tomosynthesis images. There has been no significant interval change since the prior examination. Bilateral retropectoral silicone implants. The presence of breast implants decreases the sensitivity of mammography. Ming Lewis MD MAMMO ORDERABLES * MAMMO BILAT SCREENING W SAVANAH (07/15/2021 4:23 PM REAL ESTATE FINANCIAL ANALYST) Anatomical Region Laterality Modality Breast Bilateral Mammography 07/16/2021 9:12 AM REAL ESTATE FINANCIAL ANALYST Impressions 07/16/2021 9:15 AM REAL ESTATE FINANCIAL ANALYST No mammographic evidence of malignancy in either breast. ASSESSMENT: BIRADS Category 1: Negative mammogram. RECOMMENDATION: Bilateral screening mammogram in one year. Thank you for allowing us to participate in the care of your patient. [facility] utilizes [employer] as a reminder system to notify patients of their next recommended mammogram. *Reading Radiologist: Angeles Tinajero on 07/16/2021 at 9:15 AM Narrative 07/16/2021 9:15 AM REAL ESTATE FINANCIAL ANALYST EXAMINATION: Digital screening mammogram. Low-dose full-field digital breast tomosynthesis examination was performed with synthetic 2D images and 3D acquisitions. Computer assisted detection was utilized. DATE: 07/15/2021 4:05 PM PRIOR: 2019 BREAST PARENCHYMAL DENSITY: There are scattered areas of fibroglandular density. FINDINGS: Silicone implants are unchanged. No suspicious masses, areas of architectural distortion or microcalcifications are evident on synthetic 2D mammogram or tomosynthesis images. There has been no significant interval change since the prior examination. Ming Lewis MD MAMMO ORDERABLES * MAMMO SCREENING DIGITAL IMAGE BILAT G0202 (07/23/2020 3:48 PM REAL ESTATE FINANCIAL ANALYST) Anatomical Region Laterality Modality Breast Bilateral Mammography 07/23/2020 3:55 PM REAL ESTATE FINANCIAL ANALYST Narrative 07/23/2020 3:56 PM REAL ESTATE FINANCIAL ANALYST FULL FIELD DIGITAL BILATERAL SCREENING MAMMOGRAMS WITH CAD AND 3-D TOMOSYNTHESIS DATE: 07/23/2020 3:22 PM PREVIOUS EXAM DATE/S (EVALUATED FOR COMPARISON): 06/22/2016 INDICATION: Screening TECHNIQUE: Bilateral craniocaudad (CC) and mediolateral oblique (MLO) views. Images were interpreted with the aid of CAD. 3-D tomosynthesis images were performed. Imaging was performed with implants included and implants excluded. TISSUE DENSITY: There are scattered areas of fibroglandular density FINDINGS: No discrete abnormality. No significant interval change. ASSESSMENT: BI-RADS 1 - Negative Mammogram RECOMMENDATIONS: Continued annual screening mammography The above findings should be correlated with physical examination. A relatively nonspecific study should not preclude additional evaluation if suspicious findings are present clinically. [facility] [employer] [facility]. [facility] utilize [employer] as a reminder system to notify patients of their next recommended mammograms. *Reading Radiologist: Abdullahi Luna on 07/23/2020 at 3:56 PM Ming Lewis MD MAMMO ORDERABLES * Mammogram Screening Bilateral Implants (G0202) (06/22/2016 4:26 PM REAL ESTATE FINANCIAL ANALYST) Anatomical Region Laterality Modality Breast Mammography 06/22/2016 4:30 PM REAL ESTATE FINANCIAL ANALYST Impressions 06/22/2016 4:48 PM REAL ESTATE FINANCIAL ANALYST No mammographic evidence of malignancy in either breast. ASSESSMENT: BIRADS Category 1: Negative mammogram. RECOMMENDATION: Bilateral screening mammogram in one year. Thank you for allowing us to participate in the care of your patient. [facility] utilizes [employer] as a reminder system to notify patients of their next recommended mammogram. Narrative 06/22/2016 4:48 PM REAL ESTATE FINANCIAL ANALYST EXAMINATION: Digital screening mammogram on 06/22/2016. Computer assisted detection was utilized. PRIOR: This is the patient's baseline mammogram. No previous breast imaging studies are available for comparison. BREAST PARENCHYMAL DENSITY: There are scattered areas of fibroglandular density. RISK ASSESSMENT CALCULATION: Not performed. FINDINGS: No suspicious masses, areas of architectural distortion or microcalcifications are evident. There are bilateral subpectoral saline implants, which are intact; presence of implants lowers sensitivity of mammography. Ming Lewis MD MAMMO ORDERABLES Care Teams Photography Colorist Relationship Specialty Start Date End Date Caryn Corbin DO [address] [place] [address] PCP - General 05/05/22
--- OUTSIDE RECORDS SUMMARY | 2024-09-16 13:15 | XMS_ITS | Referral Summary ---
Author Organization [facility] Address [address] [place] [address] Care Team Providers Care Welfare Eligibility Worker Name Role Phone Caryn Corbin DO Primary Care Provider [phone] Source Comments [facility],non-owned Affiliates and Associated Physician Practices is amultiple site organization consisting of ambulatory clinics and hospital sitesin [place], [place], [place] and [place]. This disclosure is being madepursuant to the Care Everywhere program and may not contain all information available regarding this patient. Last updated 18.[facility] Social History Tobacco Use Types Packs/Day Years Used Date Smoking Tobacco: Never Assessed Sex and Gender Information Value Date Recorded Sex Assigned at Not on file Gender Identity Not on file Sexual Orientation Not on file Plan of Treatment Not on file Procedures Procedure Name Priority Date/Time Associated Diagnosis Comments MAMMO BILAT IMPLANT SCREEN W SAVANAH Routine 09/30/2022 3:12 PM JEWEL GAUGER Encounter for screening mammogram for breast cancer from Last 3 Months or Most Recently Relevant to Health Maintenance Results * MAMMO BILAT IMPLANT SCREEN W SAVANAH (09/30/2022 3:12 PM JEWEL GAUGER) Anatomical Region Laterality Modality Breast Bilateral Mammography 09/30/2022 3:27 PM JEWEL GAUGER Impressions 09/30/2022 3:29 PM JEWEL GAUGER : No mammographic evidence of malignancy in either breast. ASSESSMENT: BIRADS Category 1: Negative mammogram. RECOMMENDATION: Bilateral screening mammogram in one year. Thank you for allowing us to participate in the care of your patient. [facility] utilizes [employer] as a reminder system to notify patients of their next recommended mammogram. > Interpreting Provider: Ariane Mckeon MD on 09/30/2022 3:29 PM Narrative 09/30/2022 3:29 PM JEWEL GAUGER EXAMINATION: Digital screening mammogram. Low-dose full-field digital breast tomosynthesis examination was performed with synthetic 2D images. Computer assisted detection was utilized. DATE: 09/30/2022 3:12 PM PRIOR: 07/15/2021 and prior mammograms dating back to 2015. BREAST PARENCHYMAL DENSITY: There are scattered areas of fibroglandular density. FINDINGS: No suspicious masses, areas of architectural distortion or microcalcifications are evident on synthetic 2D mammogram or tomosynthesis images. There has been no significant interval change since the prior examination. Bilateral retropectoral silicone implants. The presence of breast implants decreases the sensitivity of mammography. Ming Lewis MD MAMMO ORDERABLES from Last 3 Months or Most Recently Relevant to Health Maintenance Care Teams Welfare Eligibility Worker Relationship Specialty Start Date End Date Caryn Corbin DO [address] [place] [address] PCP - General 05/05/22
--- OUTSIDE RECORDS SUMMARY | 2024-09-16 13:15 | XMS_ITS | Clinical Summary ---
Author Organization [facility] Address [address] [place] [address] Care Team Providers Care Director Decision Support Name Role Phone Caryn Corbin DO Primary Care Provider [phone] Source Comments [facility],non-owned Affiliates and Associated Physician Practices is amultiple site organization consisting of ambulatory clinics and hospital sitesin [place], [place], [place] and [place]. This disclosure is being madepursuant to the Care Everywhere program and may not contain all information available regarding this patient. Last updated 18.[facility] Family History Medical History Relation Name Comments Cancer - Breast Neg Hx Social History Tobacco Use Types Packs/Day Years Used Date Smoking Tobacco: Never Assessed Sex and Gender Information Value Date Recorded Sex Assigned at Not on file Gender Identity Not on file Sexual Orientation Not on file Plan of Treatment Health Maintenance Due Date Last Done Comments COLOGUARD (AGES 45-75) - COLON CA SCREENING 1971 COLON MONITORING 1971 COLONOSCOPY - COLON CA SCREENING 1971 CT COLONOGRAPHY - COLON CA SCREENING 1971 Colorectal Cancer Screening 1971 FIT - COLON CA SCREENING 1971 FLEX SIG - COLON CA SCREENING 1971 LIPID TESTING 1971 PAP SMEAR 1971 HIV SCREENING 1986 HEPATITIS C SCREENING 07/31/1989 DTAP/TDAP/TD VACCINES (1 - Tdap) 1990 HEPATITIS B VACCINE (1 of 3 - 19+ 3-dose series) 1990 PNEUMOCOCCAL VACCINE 50+ (1 of 1 - PCV) 2021 ZOSTER VACCINE (1 of 2) 2021 COVID-19 VACCINE ( season) 2024 08/20/2021, 09/17/2020, 08/27/2020 INFLUENZA VACCINE (#1) 2024 , 06/16/2020, 07/16/2019, Additional history exists DEPRESSION SCREENING 08/07/2024 MAMMOGRAM 09/30/2024 09/30/2022, 04/2021, 07/23/2020, Additional history exists HIB VACCINE Aged Out No longer eligi ble based on patient's age to complete this topic HPV VACCINE Aged Out No longer eligi ble based on patient's age to complete this topic MENINGOCOCCAL (Group B) VACCINE Aged Out No longer eligible based on patient's age to complete this topic MENINGOCOCCAL VACCINE Aged Out No estephanie fidencio eligible based on patient's age to complete this topic PNEUMOCOCCAL VACCINE Aged Out No long er eligible based on patient's age to complete this topic Procedures Procedure Name Priority Date/Time Associated Diagnosis Comments MAMMO BILAT IMPLANT SCREEN W SAVANAH Routine 09/30/2022 3:12 PM ACCOUNT CONTACT ASSOCIATE Encounter for screening mammogram for breast cancer from Last 3 Months or Most Recently Relevant to Health Maintenance Results * MAMMO BILAT IMPLANT SCREEN W SAVANAH (09/30/2022 3:12 PM ACCOUNT CONTACT ASSOCIATE) Anatomical Region Laterality Modality Breast Bilateral Mammography 09/30/2022 3:27 PM ACCOUNT CONTACT ASSOCIATE Impressions 09/30/2022 3:29 PM ACCOUNT CONTACT ASSOCIATE : No mammographic evidence of malignancy in either breast. ASSESSMENT: BIRADS Category 1: Negative mammogram. RECOMMENDATION: Bilateral screening mammogram in one year. Thank you for allowing us to participate in the care of your patient. [facility] utilizes [employer] as a reminder system to notify patients of their next recommended mammogram. > Interpreting Provider: Ariane Mckeon MD on 09/30/2022 3:29 PM Narrative 09/30/2022 3:29 PM ACCOUNT CONTACT ASSOCIATE EXAMINATION: Digital screening mammogram. Low-dose full-field digital [...] Recently Relevant to Health Maintenance Care Teams Director Decision Support Relationship Specialty Start Date End Date Caryn Corbin DO [address] [place] [address] PCP - General 05/05/22
--- OUTSIDE RECORDS SUMMARY | 2024-09-16 13:15 | XMS_ITS | Clinical Summary ---
Author Organization [facility] Address [address] [place] [address] Care Team Providers Care Rn Ent Name Role Phone Caryn Corbin Primary Care Provider [phone] Allergies Active Allergy Reactions Criticality Noted Date Comments Milk-Related Compounds Diarrhea,Vomiting 2019 Medications estradiol 2 MG tablet Take 2 mg by mouth daily. 9 Active famotidine 20 MG tablet Take 20 mg by mouth daily. Active triamcinolone 0.1 % creamIndications :Allergic contact dermatitis due to plants, except food Apply topically 2 (two) times daily. 80 g 0 Active esomeprazole (NEXIUM) 40 MG capsuleIndicatio ns:Gastroesophag eal reflux disease without esophagitis Take 1 capsule (40 mg total) by mouth every morning before breakfast. 30 capsule 11 2 Active Active Problems No known active problems Immunizations Name Administration Dates Next Due Flucelvax 6 Months+ (Prefill ed Syringe) 06/16/2020 Influenza Adult (Generic) 07/16/2019,08/2018,05/22/2017, 016 PFIZER COVID-19 (ORIGINAL FORMULATION, PURPLE CAP) mRNA, LNP-S, PF, 30 MCG/0.3 ML DOSE 08/20/2021,09/17/2020,08/27/2020 Tdap (Adacel) 10/23/2019 Tdap (Generic) 10/23/2019 Family History Medical History Relation Comments Diabetes Father Stroke Father Heart Disease Mother Relation Status Comments Father Mother Social History Tobacco Use Types Packs/Day Years Used Date Smoking Tobacco: Never Smokeless Tobacco: Never Tobacco Cessation:Counseling Given: Yes Alcohol Use Standard Drinks/Week Comments Yes 13.7 (1 standard drink = 0.6 oz pure alcohol) PHQ-2 Answer Date Recorded PHQ-2 Score - If the patient scores above 3, please move on to questions 3-9 0 01/28/2022 Comments No Sex and Gender Information Value Date Recorded Sex Assigned at Not on file Legal Sex Female 10:09 AM PERSONNEL ADVISER Gender Identity Female 01/25/2022 8:55 AM CDT Sexual Orientation Not on file Last Filed Vital Signs Vital Sign Reading Time Taken Comments Blood Pressure 112/78 01/28/2022 6:55 AM CDT Pulse 78 01/28/2022 6:55 AM CDT Temperature 36.7 C (98 F) 01/28/2022 6:55 AM CDT Respiratory Rate 18 01/28/2022 6:55 AM CDT Oxygen Saturation 98% 01/28/2022 6:55 AM CDT Inhaled Oxygen Concentration - - Weight 66.3 kg (146 lb 3.2 oz) 01/28/2022 6:55 A M CDT Height 165.1 cm (5' 5 ) 10/23/2019 7:37 AM CDT Body Mass Index 24.33 10/23/2019 7:37 AM CDT Plan of Treatment Health Maintenance Due Date Last Done Comments Hepatitis B Vaccines (1 of 3 - 19+ 3-dose series) 1990 Zoster Vaccines (1 of 2) 2021 Annual Physical 01/28/2023 01/28/2022, 02/04, 10/23/2019 Mammogram Screening 07/16/2023 07/16/2021 COVID-19 Vaccine ( season) 2024 08/20/2021, 09/17/2020, 08/27/2020 Influenza Adult (#1) 2024 06/16/2020, 07/16/2019, 06/07/2019, Additional history exists DTaP, Tdap and Td Vaccines (3 - Td or Tdap) 10/22/2029 10/23/2019, 10/23/2019 Colorectal Cancer Screening Colonoscopy (10 Years) 04/29/2032 04/29/2022 Hepatitis C Completed 03/02/2022 Meningococcal B Vaccine Aged Out No l onger eligible based on patient's age to complete this topic Meningococcal Vaccine Aged Out No estephanie fidencio eligible based on patient's age to complete this topic Pneumococcal Vaccine: Pediatrics (0 to 5 Years) and At-Risk Patients (6 to 64 Years) Aged Out No longer eligible based on patient's age to complete this topic RSV Immunizations Under 20 Months Aged Out No longer eligible based on patient's age to complete this topic Procedures Procedure Name Priority Date/Time Associated Diagnosis Comments COLONOSCOPY GENERIC (SCAN ORDER) 04/29/2022 HEPATITIS C ANTIBODY Routine 03/02/2022 MAMMOGRAM GENERIC (SCAN ORDER) 07/16/2021 from Last 3 Months or Most Recently Relevant to Health Maintenance Results * COLONOSCOPY GENERIC (04/29/2022) 04/29/2022 Narrative 04/29/2022 Ordered by an unspecified provider. us Documents Scanned SCANNING Final Result * HEPATITIS C ANTIBODY (03/02/2022) HEPATITIS C AB Negative 03/02/2022 us Caryn Corbin DO LABORATORY Final Result * MAMMOGRAM GENERIC (07/16/2021) Anatomical Region Laterality Modality Other 07/16/2021 Narrative 07/16/2021 Ordered by an unspecified provider. us Documents Scanned SCANNING Final Result from Last 3 Months or Most Recently Relevant to Health Maintenance Insurance [id number] Care Teams Rn Ent Relationship Specialty Start Date End Date Caryn Corbin DO [address] [place] [address] PCP - General FAMILY PRACTICE 10/23/19
[2024-09-16 14:13] LABS: Influenza A QL RT-PCR Negative (Negative); Influenza B QL RT-PCR Negative (Negative); RSV RNA, RT-PCR Negative (Negative); SARS-CoV-2 RNA PCR Negative (Negative)
== END 2024-09-16 13:02 | disposition home or self-care (01) ==
LOC: ANHLAB 13:05
PROVIDERS: PCP Family Medicine; Visit Provider Family Medicine
DX: J06.9 Acute upper respiratory infection, unspecified (principal); Z20.822 Contact with and (suspected) exposure to COVID-19
CPT/HCPCS: 87637

== ENCOUNTER 2025-01-10 11:51 | Outpatient (CLI) | payer OTHER, SELFPAY ==
--- NOTE | ~2025-01-10 | XR_ITS ---
Right Shoulder Technique: AP and axillary views were obtained. Clinical History: Pain Findings: No fracture or dislocation is seen. Osseous alignment is anatomic. The glenohumeral and acr omioclavicular joint spaces are preserved. Soft tissues are unremarkable. Impression: Unremarkable right shoulder radiographs. Reviewed, dictated and finalized at [facility]. Impression: Unremarkable right shoulder radiographs.
--- OUTSIDE RECORDS SUMMARY | 2025-01-10 11:56 | XMS_ITS | Clinical Summary ---
Author Organization [facility] Address [address] [place] [address] Care Team Providers Care Web Page Designer Name Role Phone Caryn Corbin DO Primary Care Provider [phone] Source Comments [facility],non-owned Affiliates and Associated Physician Practices is amultiple site organization consisting of ambulatory clinics and hospital sitesin [place], [place], [place] and [place]. This disclosure is being madepursuant to the Care Everywhere program and may not contain all information available regarding this patient. Last updated 18.[facility] Family History Medical History Relation Name Comments Cancer - Breast Neg Hx Social History Tobacco Use Types Packs/Day Years Used Date Smoking Tobacco: Never Assessed Comments No Sex and Gender Information Value Date Recorded Sex Assigned at Not on file Legal Sex Female 3:57 PM BRANCH RETAIL EXECUTIVE Gender Identity Not on file Sexual Orientation [...] VACCINE (1 of 2) 2021 COVID-19 VACCINE (4 - season) 2024 08/20/2021, 09/17/2020, 08/27/2020 DEPRESSION SCREENING 08/07/2024 MAMMOGRAM 09/30/2024 09/30/2022, 12/04/2021, 07/23/2020, Additional history exists INFLUENZA VACCINE (Season Ended) 2025 05/07/2021, 06/16/2020, 07/16/2019, Additional history exists HIB VACCINE Aged Out No longer eligi ble based on patient's age to complete this topic HPV VACCINE Aged Out No longer eligi ble based on patient's age to complete this topic MENINGOCOCCAL (Group B) VACCINE SHARED DECISION-MAKING Aged Out No longer eligible based on patient's age to complete this topic MENINGOCOCCAL GROUPS A/C/Y/W VACCINE Aged Out No longer eligible based on patient's age to complete this topic Procedures Procedure Name Priority Date/Time Associated Diagnosis Comments MAMMO BILAT IMPLANT SCREEN W SAVANAH Routine 09/30/2022 3:12 PM BRANCH RETAIL EXECUTIVE Encounter for screening mammogram for breast cancer from Last 3 Months or Most Recently Relevant to Health Maintenance Results * MAMMO BILAT IMPLANT SCREEN W SAVANAH (09/30/2022 3:12 PM BRANCH RETAIL EXECUTIVE) Anatomical Region Laterality Modality Breast Bilateral Mammography 09/30/2022 3:27 PM BRANCH RETAIL EXECUTIVE Impressions 09/30/2022 3:29 PM BRANCH RETAIL EXECUTIVE : No mammographic evidence of malignancy in either breast. ASSESSMENT: BIRADS Category 1: Negative mammogram. RECOMMENDATION: Bilateral screening mammogram in one year. Thank you for allowing us to participate in the care of your patient. [facility] utilizes [employer] as a reminder system to notify patients of their next recommended mammogram. > Interpreting Provider: Ariane Mckeon MD on 09/30/2022 3:29 PM Narrative 09/30/2022 3:29 PM BRANCH RETAIL EXECUTIVE EXAMINATION: Digital screening mammogram. Low-dose full-field digital [...] breast implants decreases the sensitivity of mammography. us Ming Lewis MD MAMMO ORDERABLES Final Resu lt from Last 3 Months or Most Recently Relevant to Health Maintenance [place] [facility] [place]: [address] [id number] [facility] Care Teams Web Page Designer Relationship Specialty Start Date End Date Caryn Corbin DO [address] [place] [address] PCP - General 05/05/22
--- OUTSIDE RECORDS SUMMARY | 2025-01-10 11:56 | XMS_ITS | Clinical Summary ---
Author Organization [facility] Address [address] [place] [address] Phone Care Team Providers Care Newspaper Distributor Supervisor Name Role Phone Unavailable Primary Care Provider [...] Encounters Date Type Department Care Team Description 10/15/2024 External Device Data [facility] ABSTRACTION Provider, Abstract 10/15/2024 External Device Data [facility] ABSTRACTION Provider, Abstract 10/12/2024 External Device Data [facility] ABSTRACTION Provider, Abstract 10/11/2024 External Device Data [facility] ABSTRACTION Provider, Abstract [...] on file Legal Sex Female 9:53 AM REGULATOR ASSEMBLER Gender Identity Not on file Sexual Orientation Not on file Last Filed Vital Signs Vital Sign Reading Time Taken Comments Blood Pressure 106/65 10/07/2019 10:05 AM REGULATOR ASSEMBLER Pulse 64 10/07/2019 10:05 AM REGULATOR ASSEMBLER Temperature 36.5 C (97.7 F) 10/07/2019 10:05 AM REGULATOR ASSEMBLER Respiratory Rate 16 10/07/2019 10:05 AM REGULATOR ASSEMBLER Oxygen Saturation 100% 10/07/2019 10:05 AM REGULATOR ASSEMBLER Inhaled Oxygen Concentration - - Weight 64.4 kg (142 lb) 10/07/2019 6:10 AM REGULATOR ASSEMBLER Height 165.1 cm (5' 5) 10/07/2019 6:10 AM REGULATOR ASSEMBLER Body Mass Index 23.63 10/07/2019 6:10 AM REGULATOR ASSEMBLER Plan of Treatment Health Maintenance Due Date Last Done Comments DTAP/TDAP/TD VACCINES (1 - Tdap) 1990 HEPATITIS B VACCINES (1 of 3 - 19+ 3-dose series) 07/09 HPV/Cotest (21-29) 1992 CERVICAL CANCER SCREENING 2001 HPV/Cotest (30-65) 2001 PAP SMEAR 2001 COLORECTAL SCREENING 2016 Colorectal Cancer Screening 2016 FIT-DNA Q 3 years 2016 FIT/FOBT Q 1 year 2016 Flex Sig/CT Colonography Q 5 years 2016 BREAST CANCER SCREENING 06/22/2017 06/22/2016 ZOSTER VACCINE (1 of 2) 2021 INFLUENZA VACCINE (#1) 2024 05/07/2021 Medical Devices Implanted Type Area Sugarcane Planter Device Identifier Shelf Expiration Date Model / Serial / Lot Breast Silicone Smth Rnd Hp [id number] - [id number] Implanted:Qty: 1 on 10/07/2019 by Abdullahi Silva MD at [facility] Mammary Right: Breast MENTOR CLARA 08/07/2023 [id number] / / [id number] Description: Cosmetic- implant brought in by surgeon Breast Silicone Smth Rnd Hp [id number] - [id number] Implanted:Qty: 1 on 10/07/2019 by Abdullahi Silva MD at [facility] Mammary Left: Breast MENTOR CLARA 01/20/2020 [id number] / / [id number] Description: Cosmetic- implant brought in by surgeon Explanted Type Area Sugarcane Planter Device Identifier Shelf Expiration Date Model / Serial / Lot Right Breast Implant Explanted:Qty: 1 on 10/07/2019 by Abdullahi Silva MD at [facility] Right: Breast Left Breast Implant Explanted:Qty: 1 on 10/07/2019 by Abdullahi Silva MD at [facility] Left: Breast Insurance RX [employer] RX Member Subscriber Plan / Payer (Ef fective 2023-Present) Name:Danita Maza Relation to Subscriber:Self Name:Danita Maza Subscriber ID:Not on file Payer ID:Not on file Type:RX Commercial Address: [address] Advance Directives For more information, please contact: [phone] * Full Code (Latest Code Status on File) Date Activated Date Inactivated Comments 10/07/2019 8:56 AM 10/07/2019 12:29 PM
== END 2025-01-10 11:52 | disposition home or self-care (01) ==
PROVIDERS: PCP Family Medicine; Visit Provider Student in an Organized Health Care Education/Training Program
DX: M25.511 Pain in right shoulder (principal)
CPT/HCPCS: 73030

== ENCOUNTER 2025-03-24 12:30 | Outpatient (RCR) | payer OTHER, SELFPAY ==
--- NOTE | 2024-12-25 10:09 | OPREHPOC ---
Outpatient Therapy Plan of Care This is a Multidisciplinary Plan of Care that may contain components documented by all disciplines (PT, OT, and ST.) PT Problem 1 PT Problem #1 Knowledge Deficit PT Goal 1 Goal / Goal Update 1*independent with HEP 2* pt voice correct set up of her work station and computer Target Visit 10 PT Problem 2 PT Problem #2 Pain PT Goal 1 Goal / Goal Update 1* pt report pain rating at worst of 4/10 2* pt report no awakening from sleep due to pain Target Visit 10 PT Problem 3 PT Problem #3 Impaired Range of Motion PT Goal 1 Goal / Goal Update *increase R shoulder ROM to improve use of her dominant arm for self care and home activity-- reaching to cabinets and do her hair standing active ROM 1* flexion 140' 2* abduction 95' 3* IR- reach behind back, palm to waist 4* ER- reaching behind head, palm to back of head Target Visit 10 PT Problem 4 PT Problem #4 Impaired Strength PT Goal 1 Goal / Goal Update R shoulder, increase strength for improved use of R arm: standing x 5 reps with hand wt 1* flexion 90' with 2# 2* abduction 70' with 1# 3* IR- reach behind back, palm to waist 4* ER- reaching behind head, palm to back of head Target Visit 10
--- NOTE | 2024-12-25 10:10 | PTOPEVAL1 ---
Assessment and note entered by Sunitha Dominguez, PT Evaluation Information Assessment Status Evaluation ICD-10 Condition Codes (PT) Pain in right shoulder M25.511 Onset September 2024 Subjective Information no trauma to shoulder, gradual increase in pain; just like happened with her L shoulder- frozen; have been doing the exercises and moving her arm; R hand dominant; have been going to the gym and have a regional trainer; have an order for xray, going to get it on Monday problems reaching with R arm-- reaching forward, to side and putting hair up activity: work at hospital, all office work Reported Pain Level Pain Score Self Report Additional Pain Score Comments pain range in the past week 2-8/10; tight in shoulder, into elbow and wrist- tight and burning; increase pain: use R arm decrease pain; heat, biofreeze, stretching, ibuprofen, massage tool --Perdido tail with sleeping, awaken 2x/night, tends to sleep on R/L side Assessment PT Clinical Summary Danita has the diagnosis of R shoulder pain. She reports issues with self care and home tasks due to not able to reach and use her dominant arm. And issues with sleeping. Self assessment DASH rating of 57% limitation in activity level. 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 She recent had the same issue with her L shoulder and has initiated her shoulder exercises , but not helping. With the evaluation: decreased R shoulder strength and ROM in all motions, with spasms and pain over anterior shoulder. Posture with rounded shoulders and upper trunk. Skilled PT services are indicated for modalities to decrease pain and spasms over shoulder, with therapeutic exercises to increase ROM and strength with education for HEP and posture/body mechanics and work station set up. Plan of Care Interventions Electrical Stimulation,Hot Pack/Cold Pack,Manual Therapy,Neuro Re-education,Patient/Caregiver Education,Therapeutic Activities,Therapeutic Exercise,Ultrasound,Other Other Interventions dry needling, taping PT Services Indicated Yes Treatment Frequency and 1-2x/wk for 10 visits Duration These treatments will address the objective and functional deficits as defined above. The patient will be advanced safely and appropriately in order for the patient to progress towards his/her prior level of function. Additional exercises will be introduced and as well as a comprehensive home exercise program upon discharge, if needed, ?to ensure carryover of functional gains achieved in the clinic. This treatment plan has been reviewed and agreement upon by the patient.
--- NOTE | 2025-02-03 12:09 | OPREHPOC ---
Outpatient Therapy Plan of Care This is a Multidisciplinary Plan of Care that may contain components documented by all disciplines (PT, OT, and ST.) PT Problem 1 PT Problem #1 Knowledge Deficit PT Goal 1 Goal / Goal Update 1*independent with HEP 2* pt voice correct set up of her work station and computer 02-03-25 progress goals met continue to progress education Target Visit 20 PT Problem 2 PT Problem #2 Pain PT Goal 1 Goal / Goal Update 1* pt report pain rating at worst of 4/10 2* pt report no awakening from sleep due to pain 02-03-25 progress goals not met continue towards goals Target Visit 20 PT Problem 3 PT Problem #3 Impaired Range of Motion PT Goal 1 Goal / Goal Update *increase R shoulder ROM to improve use of her dominant arm for self care and home activity-- reaching to cabinets and do her hair standing active ROM 1* flexion 140' 2* abduction 95' 3* IR- reach behind back, palm to waist 4* ER- reaching behind head, palm to back of head 02-03-25 progress goals not met continue towards Target Visit 20 PT Problem 4 PT Problem #4 Impaired Strength PT Goal 1 Goal / Goal Update R shoulder, increase strength for improved use of R arm: standing x 5 reps with hand wt 1* flexion 90' with 2# 2* abduction 70' with 1# 3* IR- reach behind back, palm to waist 4* ER- reaching behind head, palm to back of head 02-03-25 progress goals not met continue towards Target Visit 20
--- NOTE | 2025-02-03 12:10 | PTOPPROG ---
Assessment and note entered by Sunitha Dominguez, PT Evaluation Information Assessment Status Progress ICD-10 Condition Codes (PT) Pain in right shoulder M25.511 Onset September 2024 Subjective Information shoulder has little less pain, but range is worse; injection in the shoulder did not really make any difference; the needling, US and therapy help the pain; continue to to the exercises and some stretching at the gym. PAIN: range in the past week 2-5/10; constant, dull ache; also have elbow and wrist pain- burning & tingling sometimes increase pain: reach behind back, keeping arm still, when sleeping decrease pain: ibuprofen, stretch arm, heat awaken from sleep 2-3 x/night; tend to sleep on her side with arms curled up Assessment PT Clinical Summary Danita has received 10 PT sessions. Compared to the initial evaluation: pain rating from 2-8/10 to 2-5/10; is also having some numbness and tingling into elbow and wrist; self assessment with Quick DASH rating from 57 to 32% limitation in activity level; awakening from sleep 2x to 2-3x/night; active ROM of R shoulder flexion, abduction, IR and ER motions- active and passive are within +/- 5'; education for HEP and posture, body mechanics. The goals were partially met. Continue PT treatment. Plan of Care Interventions Electrical Stimulation,Hot Pack/Cold Pack,Manual Therapy,Neuro Re-education,Patient/Caregiver Education,Therapeutic Activities,Therapeutic Exercise,Ultrasound,Other Other Interventions dry needling, taping PT Services Indicated Yes Treatment Frequency and 1-2x/wk for 10 visits Duration These treatments will address the objective and functional deficits as defined above. The patient will be advanced safely and appropriately in order for the patient to progress towards his/her prior level of function. Additional exercises will be introduced and as well as a comprehensive home exercise program upon discharge, if needed, ?to ensure carryover of functional gains achieved in the clinic. This treatment plan has been reviewed and agreement upon by the patient.
--- NOTE | 2025-03-24 13:33 | OPREHPOC ---
Outpatient Therapy Plan of Care This is a Multidisciplinary Plan of Care that may contain components documented by all disciplines (PT, OT, and ST.) PT Problem 1 PT Problem #1 Knowledge Deficit PT Goal 1 Goal / Goal Update 1*independent with HEP 2* pt voice correct set up of her work station and computer 02-03-25 progress goals met continue to progress education 03-24-25 progress goal met continue to progress HEP Target Visit 29 PT Problem 2 PT Problem #2 Pain PT Goal 1 Goal / Goal Update 1* pt report pain rating at worst of 4/10 2* pt report no awakening from sleep due to pain 02-03-25 progress goals not met 03-24-25 progress goals met continue towards goals Target Visit 20 Progress Met PT Goal 2 Goal / Goal Update 03-24-25 progress NEW GOAL: * pain rating 1/10 at worst Target Visit 29 PT Problem 3 PT Problem #3 Impaired Range of Motion PT Goal 1 Goal / Goal Update *increase R shoulder ROM to improve use of her dominant arm for self care and home activity-- reaching to cabinets and do her hair standing active ROM 1* flexion 140' 2* abduction 95' 3* IR- reach behind back, palm to waist 4* ER- reaching behind head, palm to back of head 03-24-25 progress goals 1,2,3 met 02-03-25 progress goals not met continue towards Target Visit 20 Progress Partially Met PT Goal 2 Goal / Goal Update 03-24-25 progress NEW goals: active R shoulder in standing 1* flexion 150' 2* abduction 130' 3* IR, reach behind back, fingers to distal scapula 4* ER, reach to back of head, palm to back of head Target Visit 29 PT Problem 4 PT Problem #4 Impaired Strength PT Goal 1 Goal / Goal Update R shoulder, increase strength for improved use of R arm: standing x 5 reps with hand wt 1* flexion 90' with 2# 2* abduction 70' with 1# 3* IR- reach behind back, palm to waist 4* ER- reaching behind head, palm to back of head 02-03-25 progress goals not met continue towards 03-24-25 progress goals 1,2,3 Target Visit 20 Progress Partially Met PT Goal 2 Goal / Goal Update 03-24-25 progress NEW goals: R shoulder x 10 reps: 1* supine IR with 4# hand wt 2* side lying ER with 3# hand wt Target Visit 29
--- NOTE | 2025-03-24 13:33 | PTOPPROG ---
Assessment and note entered by Sunitha Dominguez, PT Progress Report Assessment Status Progress ICD-10 Condition Codes (PT) Pain in right shoulder M25.511 Onset September 2024 Subjective Information moving shoulder better, but do not have all my rotation yet; sleeping is good- without shoulder bothering me; can reach up into the cabinet better , and stronger; not taking any meds for my shoulder--not needed it; but sometimes after therapy stretching take tylenol; Assessment PT Clinical Summary Danita has received 19 PT sessions. Compared to the last assessment: pain rating from 2-5/10 to 0-2/10; no longer has pain in posterior shoulder, neck or radicular into R UE to wrist; self assessment with Quick Dash self rating from 32 to 18% limitation in activity level; reported with sleeping awakening 2-3 x/night to NO awakening from sleep; education for HEP and posture. ROM of R shoulder: active in standing/passive in supine: flexion 120/145'; abduction 120/125'; IR reach behind back, palm to above waist/ 65'; ER- reach to back of head, palm to behind ear/ 60'; Strength of R shoulder: standing x 5 reps - flexion to ~ 90' with 5# - abduction to ~ 80' with 5# The goals were partially met. Continue PT treatment. Plan of Care Interventions Electrical Stimulation,Hot Pack/Cold Pack,Manual Therapy,Neuro Re-education,Patient/Caregiver Education,Therapeutic Activities,Therapeutic Exercise,Ultrasound,Other Other Interventions dry needling, taping PT Services Indicated Yes Treatment Frequency and 1-2x/wk for 10 visits Duration These treatments will address the objective and functional deficits as defined above. The patient will be advanced safely and appropriately in order for the patient to progress towards his/her prior level of function. Additional exercises will be introduced and as well as a comprehensive home exercise program upon discharge, if needed, ?to ensure carryover of functional gains achieved in the clinic. This treatment plan has been reviewed and agreement upon by the patient.
== END 2025-03-25 23:59 | disposition home or self-care (01) ==
LOC: ANHPT 12:30
PROVIDERS: PCP Family Medicine; Visit Provider Student in an Organized Health Care Education/Training Program
DX: M25.511 Pain in right shoulder (principal)
CPT/HCPCS: 20560; 97032; 97035; 97110; 97140; 97161; 97530

== ENCOUNTER 2025-04-16 07:17 | Outpatient (CLI) | payer OTHER, SELFPAY ==
[2025-04-16 08:05] LABS: Hematocrit 40.0 % (37.0-47.0); Hemoglobin 13.7 g/dL (12.0-15.0); Immature Granulocyte Percent A 0.2 % (0-0.5); Lymphocytes Absolute Auto 2.35 K/mm3 (0.9-3.2); Mean Corpuscular HGB Conc 34.3 g/dl (32-36); Mean Corpuscular Hemoglobin 32.5 pg (26-34); Mean Corpuscular Volume 94.8 fl (80-100); Nucleated Red Blood Cells Absolute Auto 0.000 K/mm3 (0.0-0.012); Nucleated Red Blood Cells Perc 0.0 % (0.0-0.2); Platelet Count Result 275 k/mm3 (150-375); Red Blood Count 4.22 M/mm3 (4.2-5.4); White Blood Count 5.4 K/mm3 (4.5-10.0)
[2025-04-16 09:26] LABS: Alanine Aminotransferase 23 U/L (6-35); Albumin Level 4.6 g/dL (3.5-5.1); Alkaline Phosphatase 53 U/L (38-126); Anion Gap 6 mmol/L (4-12); Aspartate Amino Transferase 34 U/L (14-36); Bilirubin,Total 0.7 mg/dL (0.2-1.3); Blood Urea Nitrogen 12 mg/dL (7-17); Calcium 9.5 mg/dL (8.4-10.2); Carbon Dioxide 28 mmol/L (22-30); Chloride 101 mmol/L (98-107); Cholesterol 208 mg/dL (0-200); Estimated Glomerular Filt Rate > 60; Glucose 88 mg/dL (65-110); HDL Direct 86 mg/dL; Potassium 4.3 mmol/L (3.4-5.0); Sodium 135 mmol/L (137-145); Total Protein 7.1 g/dL (6.3-8.2); Triglycerides 92 mg/dL (<150)
[2025-04-16 09:29] LABS: Hemoglobin A1C 5.2 % (<5.7)
[2025-04-16 09:58] LABS: Thyroid Stimulating Hormone Reflex 1.330 uIU/mL (0.465-4.68)
== END 2025-04-16 07:18 | disposition home or self-care (01) ==
PROVIDERS: PCP Family Medicine; Visit Provider Family Medicine
DX: Z00.00 Encounter for general adult medical examination without abnormal findings (principal); Z13.1 Encounter for screening for diabetes mellitus; R53.83 Other fatigue
CPT/HCPCS: 36415; 80053; 80061; 83036; 84443; 85025

== ENCOUNTER 2025-06-19 12:30 | Outpatient (RCR) | payer OTHER, SELFPAY ==
--- NOTE | 2025-05-12 13:32 | OPREHPOC ---
Outpatient Therapy Plan of Care This is a Multidisciplinary Plan of Care that may contain components documented by all disciplines (PT, OT, and ST.) PT Problem 1 PT Problem #1 Knowledge Deficit PT Goal 1 Goal / Goal Update 1*independent with HEP 2* pt voice correct set up of her work station and computer 02-03-25 progress goals met continue to progress education 03-24-25 progress goal met continue to progress HEP 05-12-25 progress goal met continue to progress education and HEP Target Visit 37 PT Problem 2 PT Problem #2 Pain PT Goal 1 Goal / Goal Update 1* pt report pain rating at worst of 4/10 2* pt report no awakening from sleep due to pain 02-03-25 progress goals not met 03-24-25 progress goals met continue towards goals Target Visit 20 Progress Met PT Goal 2 Goal / Goal Update 03-24-25 progress NEW GOAL: * pain rating 1/10 at worst 05-12-25 progress goal not met; 5/10 at worst continue towards goal Target Visit 37 PT Problem 3 PT Problem #3 Impaired Range of Motion PT Goal 1 Goal / Goal Update *increase R shoulder ROM to improve use of her dominant arm for self care and home activity-- reaching to cabinets and do her hair standing active ROM 1* flexion 140' 2* abduction 95' 3* IR- reach behind back, palm to waist 4* ER- reaching behind head, palm to back of head 03-24-25 progress goals 1,2,3 met 02-03-25 progress goals not met continue towards Target Visit 20 Progress Partially Met PT Goal 2 Goal / Goal Update 03-24-25 progress NEW goals: active R shoulder in standing 1* flexion 150' 2* abduction 130' 3* IR, reach behind back, fingers to distal scapula 4* ER, reach to back of head, palm to back of head 05-12-25 progress goals not met continue towards goals Target Visit 37 PT Problem 4 PT Problem #4 Impaired Strength PT Goal 1 Goal / Goal Update R shoulder, increase strength for improved use of R arm: standing x 5 reps with hand wt 1* flexion 90' with 2# 2* abduction 70' with 1# 3* IR- reach behind back, palm to waist 4* ER- reaching behind head, palm to back of head 02-03-25 progress goals not met continue towards 03-24-25 progress goals 1,2,3 Target Visit 20 Progress Partially Met PT Goal 2 Goal / Goal Update 03-24-25 progress NEW goals: R shoulder x 10 reps: 1* supine IR with 4# hand wt 2* side lying ER with 3# hand wt 05-12-25 progress goals not met continue towards goals Target Visit 37
--- NOTE | 2025-05-12 13:32 | PTOPPROG ---
Assessment and note entered by Sunitha Dominguez, PT Assessment Status Progress ICD-10 Condition Codes (PT) Pain in right shoulder M25.511 Onset September 2024 Subjective Information shoulder is tightening up again, not sure why; getting really frustrated by this shoulder; not sure what to do or why it continues to hurt and be so sore and tight; PAIN: range in the past week 0-5/10; lateral neck, anterior shoulder feel like I am sleeping wrong and wake up with shoulder hurting in AM; increase pain: stretching shoulder, IR motion decrease pain: rest, heat, ibuprofen with sleeping do not awaken during sleeping due to pain, but when wake up in AM- shoulder hurts Assessment PT Clinical Summary Danita has received 27 PT sessions. Compared to the last assessment: pain rating from 0-2/10 to 0-5/10; anterior shoulder, lateral neck or radicular into R UE to wrist; self assessment with Quick Dash self rating from 18 to 23% limitation in activity level; reported with sleeping, NO awakening from sleep but have shoulder pain when wake up; education for HEP and posture. ROM of R shoulder: active in standing/passive in supine: flexion 115/120'; abduction 110/115''; IR reach behind back, palm to waist/ 35'; ER- reach to back of head, palm to in front of ear/ 30 '; The goal for education was the only goal that was met. Her active and passive ROM are less and pain rating and functional score are worse. Continue PT treatment. She is to contact Dr. Phan for a follow up appointment. Plan of Care Interventions Electrical Stimulation,Hot Pack/Cold Pack,Manual Therapy,Neuro Re-education,Patient/Caregiver Education,Therapeutic Activities,Therapeutic Exercise,Ultrasound,Other Other Interventions dry needling, taping PT Services Indicated Yes Treatment Frequency and 1-2x/wk for 10 visits Duration These treatments will address the objective and functional deficits as defined above. The patient will be advanced safely and appropriately in order for the patient to progress towards his/her prior level of function. Additional exercises will be introduced and as well as a comprehensive home exercise program upon discharge, if needed, ?to ensure carryover of functional gains achieved in the clinic. This treatment plan has been reviewed and agreement upon by the patient.
--- NOTE | 2025-06-19 13:35 | OPREHPOC ---
Outpatient Therapy Plan of Care This is a Multidisciplinary Plan of Care that may contain components documented by all disciplines (PT, OT, and ST.) PT Problem 1 PT Problem #1 Knowledge Deficit PT Goal 1 Goal / Goal Update 1*independent with HEP 2* pt voice correct set up of her work station and computer 02-03-25 progress goals met continue to progress education 03-24-25 progress goal met continue to progress HEP 05-12-25 progress goal met continue to progress education and HEP 06-19-25 progress goal met continue to progress Target Visit 46 PT Problem 2 PT Problem #2 Pain PT Goal 1 Goal / Goal Update 1* pt report pain rating at worst of 4/10 2* pt report no awakening from sleep due to pain 02-03-25 progress goals not met 03-24-25 progress goals met continue towards goals Target Visit 20 Progress Met PT Goal 2 Goal / Goal Update 03-24-25 progress NEW GOAL: * pain rating 1/10 at worst 05-12-25 progress goal not met; 5/10 at worst continue towards goal 06-19-25 progress goal not met NEW GOALS: 1* pain rating at worst of 3/10 2* pt report awakening from sleep, 1 x/night Target Visit 46 PT Problem 3 PT Problem #3 Impaired Range of Motion PT Goal 1 Goal / Goal Update *increase R shoulder ROM to improve use of her dominant arm for self care and home activity-- reaching to cabinets and do her hair standing active ROM 1* flexion 140' 2* abduction 95' 3* IR- reach behind back, palm to waist 4* ER- reaching behind head, palm to back of head 03-24-25 progress goals 1,2,3 met 02-03-25 progress goals not met continue towards Target Visit 20 Progress Partially Met PT Goal 2 Goal / Goal Update 03-24-25 progress NEW goals: active R shoulder in standing 1* flexion 150' 2* abduction 130' 3* IR, reach behind back, fingers to distal scapula 4* ER, reach to back of head, palm to back of head 05-12-25 progress goals not met continue towards goals 06-19-25 progress goals not met continue towards goals Target Visit 46 PT Problem 4 PT Problem #4 Impaired Strength PT Goal 1 Goal / Goal Update R shoulder, increase strength for improved use of R arm: standing x 5 reps with hand wt 1* flexion 90' with 2# 2* abduction 70' with 1# 3* IR- reach behind back, palm to waist 4* ER- reaching behind head, palm to back of head 02-03-25 progress goals not met continue towards 03-24-25 progress goals 1,2,3 Target Visit 20 Progress Partially Met PT Goal 2 Goal / Goal Update 03-24-25 progress NEW goals: R shoulder x 10 reps: 1* supine IR with 4# hand wt 2* side lying ER with 3# hand wt 05-12-25 progress goals not met continue towards goals 06-19-25 progress goals not met continue towards Target Visit 46
--- NOTE | 2025-06-19 13:36 | PTOPPROG ---
Assessment and note entered by Sunitha Dominguez, PT Assessment Status Progress ICD-10 Condition Codes (PT) Pain in right shoulder M25.511 Onset September 2024 Subjective Information shoulder was better, then gotten worse; saw Dr. Phan yesterday got an injection and going to have an MRI; have been working on the stretching exercises at home; want to continue with therapy . PAIN: range in the past week 1-6/10; lateral neck, anterior shoulder; tightens when do not move my arm into upper arm and forearm - oliveira and tight, like being pulled increase pain: sleep and stay still, IR motion decrease pain: rest, heat, ibuprofen, dry needling, myofascial release with sleeping awaken due to pain 3-4x/night Assessment PT Clinical Summary Danita has received 36 PT sessions. Compared to the last assessment: pain rating from 0-5/10 to 1-6/10; continues to have pain into proximal elbow and forearm to wrist; self assessment with Quick DASH is the same at 23% limitation in activity level; reported sleeping was without pain awakening her and now wakes her up 3-4 x/night; shoulder flexion and abduction ranges are 5-10' decrease and IR and ER are the same. With the use of dry needling and US, manual therapy during therapy, her pain is decreased. ROM: R shoulder: active in standing/passive in supine: flexion 110/125'; abduction 100/120' IR- reach behind back, palm to waist/ 35' and ER- reach to back of head, palm to ear/ 30'. The goals were partially achieved. Continue PT. Progress stretching s/p recent injection and await the MRI & results. Plan of Care Interventions Electrical Stimulation,Hot Pack/Cold Pack,Manual Therapy,Neuro Re-education,Patient/Caregiver Education,Therapeutic Activities,Therapeutic Exercise,Ultrasound,Other Other Interventions dry needling, taping PT Services Indicated Yes Treatment Frequency and 1-2x/wk for 10 visits Duration These treatments will address the objective and functional deficits as defined above. The patient will be advanced safely and appropriately in order for the patient to progress towards his/her prior level of function. Additional exercises will be introduced and as well as a comprehensive home exercise program upon discharge, if needed, ?to ensure carryover of functional gains achieved in the clinic. This treatment plan has been reviewed and agreement upon by the patient.
== END 2025-06-30 23:59 | disposition home or self-care (01) ==
LOC: ANHPT 12:30
PROVIDERS: PCP Family Medicine; Visit Provider Student in an Organized Health Care Education/Training Program
DX: M25.511 Pain in right shoulder (principal)
CPT/HCPCS: 97014; 97035; 97110; 97140; 97530; G0283

== ENCOUNTER 2025-06-27 06:47 | Emergency (ER) | payer OTHER, SELFPAY ==
--- NOTE | ~2025-06-27 | CT_ITS ---
EXAMINATION: CT soft tissue neck w con DATE: 06/27/2025 08:28 INDICATION: Trismus. Infected tooth #32 TECHNIQUE: Computed tomography (CT) of the neck was performed with 75 mL Omnipaque-350 intravenous contrast. Automated exposure control and iterative reconstruction technique were employed. The dose-length product was 277.59 mGy-cm. COMPARISON: None FINDINGS: Orbits are normal. The paranasal sinuses are clear. Mastoid air cells and middle ear cavities are clear. The posterior most bilateral maxillary and left submandibular molars are impacted. There is a persistent lucent defect corresponding to a likely site of a previously impacted right posterior most mo lar which is no longer visualized and has reportedly been recently extracted. Correlate with clinical history. There is subtle asymmetric swelling of the soft tissues at the right pharyngeal mucosal space with obscuration of the fat plane this from the more lateral sales support administrator space. No abscess identified. Assessment of the soft tissues is however somewhat limited by streak artifact from multiple dental restorations. There is mild asymmetric enlargement of still normal-sized right jugular chain and submandibular lymph nodes which are likely reactive. No pathologically enlarged lymph nodes or abnormal masses identified. Thyroid gland is unremarkable. The vasculature is patent and normal in caliber. Airway is unremarkable. Superior mediastinum is unremarkable. Lung apices are normal. Cervical spine is unremarkable. IMPRESSION: 1. Mild asymmetric swelling of the right pharyngeal mucosal space and obscuration of the fat plane intervening between it and the sales support administrator space which given the provided history of recent extraction of the right posterior most mandibular molar is most likely inflammatory or infectious in etiology. No evident abscess identified although evaluation of the soft tissues is mildly limited along the plane of multiple dental restorations. 2. Mild likely reactive right level 2 jugular and submandibular lymphadenopathy. Reviewed, dictated and finalized at location A. RETTE VENDOR IMPRESSION: 1. Mild asymmetric swelling of the right pharyngeal mucosal space and obscurati on of the fat plane intervening between it and the sales support administrator space which given the provided history of recent extraction of the right posterior most mandibul ar molar is most likely inflammatory or infectious in etiology. No evident absc ess identified although evaluation of the soft tissues is mildly limited along the plane of multiple dental restorations. 2. Mild likely reactive right level 2 jugular and submandibular lymphadenopathy .
--- OUTSIDE RECORDS SUMMARY | 2025-06-27 06:50 | XMS_ITS | Clinical Summary ---
Author Organization [facility] Address [address] [place] [address] Phone Care Team Providers Care Oceanography Professor Name Role Phone Unavailable Primary Care Provider [...] 11 04/02/2022 11:17 AM CDT 01/28/2022 Active Immunizations Immunization Administration Dates Next Due Influenza Seasonal Unspecified Formulation IM Social History Tobacco Use Types Packs/Day Years Used Date Smoking Tobacco: Former Alcohol Use Standard Drinks/Week Comments Yes 0 (1 standard drink = 0.6 oz pur e alcohol) Comments No Sex and Gender Information Value Date Recorded Sex Assigned at Not on file 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 Gender Identity Not on file Sexual Orientation Not on file Last Filed Vital Signs Vital Sign Reading Time Taken Comments Blood Pressure 106/65 10/07/2019 10:05 AM WEAPONS SPECIALIST Pulse 64 10/07/2019 10:05 AM WEAPONS SPECIALIST Temperature 36.5 C (97.7 F) 10/07/2019 10:05 AM WEAPONS SPECIALIST Respiratory Rate 16 10/07/2019 10:05 AM WEAPONS SPECIALIST Oxygen Saturation 100% 10/07/2019 10:05 AM WEAPONS SPECIALIST Inhaled Oxygen Concentration - - Weight 64.4 kg (142 lb) 10/07/2019 6:10 AM WEAPONS SPECIALIST Height 165.1 cm (5' 5) 10/07/2019 6:10 AM WEAPONS SPECIALIST Body Mass Index 23.63 10/07/2019 6:10 AM WEAPONS SPECIALIST Plan of Treatment Health Maintenance Due Date [...] (1 of 2) 2021 INFLUENZA VACCINE (#1) 2025 05/07/2021 Medical Devices Implanted Type Area Tapper Helper Device Identifier Shelf Expiration Date Model / Serial / Lot Breast Silicone Smth Rnd Hp [id number] - [id number] Implanted:Qty: 1 on 10/07/2019 by Abdullahi Silva MD at [facility] Mammary Right: Breast MENTOR CLARA 08/07/2023 [id number] / / [id number] Description: Cosmetic- implant brought in by surgeon Breast Silicone Smth Rnd Hp [id number] - [id number] Implanted:Qty: 1 on 10/07/2019 by Abdullahi Silva MD at [facility] Mammary Left: Breast MENTOR CLARA 01/20/2020 [id number] / / [id number] Description: Cosmetic- implant brought in by surgeon Explanted Type Area Tapper Helper Device Identifier Shelf Expiration Date Model / Serial / Lot Right Breast Implant Explanted:Qty: 1 on 10/07/2019 by Abdullahi Silva MD at [facility] Right: Breast Left Breast Implant Explanted:Qty: 1 on 10/07/2019 by Abdullahi Silva MD at [facility] Left: Breast Insurance RX [facility] [employer] RX OPTUM RX Member Subscriber Plan / Payer (Ef fective 2023-Present) Name:WellingtonDanita rashid Relation to Subscriber:Self Name:WellingtonDanita rashid Subscriber ID:Not on file Payer ID:Not on file Type:RX Commercial Address: [address] Advance Directives For more information, please contact: [phone] * Full Code (Latest Code Status on File) Date Activated Date Inactivated Comments 10/07/2019 8:56 AM 10/07/2019 12:29 PM
--- OUTSIDE RECORDS SUMMARY | 2025-06-27 06:50 | XMS_ITS | Clinical Summary ---
Author Organization [facility] Address [address] [place] [address] Care Team Providers Care Fire Engineer Name Role Phone Caryn Corbin DO Primary Care Provider [phone] Source Comments [facility],non-owned Affiliates and Associated Physician Practices is amultiple site organization consisting of ambulatory clinics and hospital sitesin [place], [place] and [place]. This disclosure is being madepursuant to the Care Everywhere program and may not contain all information available regarding this patient. 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 Gender Identity Not on file Sexual Orientation Not on file Last Filed Vital Signs Vital Sign Reading Time Taken Comments Blood Pressure - - Pulse - - Temperature - - Respiratory Rate - - Oxygen Saturation - - Inhaled Oxygen Concentration - - Weight 57.2 kg (126 lb) 02/15/2025 11:38 AM CDT Height 165.1 cm (5' 5) 02/15/2025 11:38 AM CDT Body Mass Index 20.97 02/15/2025 11:38 AM CDT Plan of Treatment Health Maintenance Due Date Last Done Comments COLOGUARD (AGES 45-75) - COLON CA SCREENING 1971 COLON MONITORING 1971 COLONOSCOPY - COLON CA SCREENING 1971 CT COLONOGRAPHY - COLON CA SCREENING 1971 Colorectal Cancer Screening 1971 FIT - COLON CA SCREENING 1971 FLEX SIG - COLON CA SCREENING 1971 LIPID TESTING 1971 HIV SCREENING 1986 HEPATITIS C SCREENING 07/31/1989 DTAP/TDAP/TD VACCINES (1 - Tdap) 1990 HEPATITIS B VACCINE (1 of 3 - 19+ 3-dose series) 1990 Cervical Cancer Screening 1992 PAP SMEAR 1992 PAP with HPV 2001 PNEUMOCOCCAL VACCINE 50+ (1 of 1 - PCV) 2021 ZOSTER VACCINE (1 of 2) 2021 DEPRESSION SCREENING 08/07/2024 COVID-19 VACCINE ( season) 2025 08/20/2021, 09/17/2020, 08/27/2020 INFLUENZA VACCINE (#1) 2025 , 06/16/2020, 07/16/2019, Additional history exists MAMMOGRAM 02/15/2027 02/15/2025, 09/08, 07/16/2021, Additional history exists HIB VACCINE Aged Out [...] MAMMO BILAT IMPLANT SCREEN W [place]AVANAH Routine 02/15/2025 11:26 AM CDT Screening mammogram for breast cancer from Last 3 Months or Most Recently Relevant to Health Maintenance Results * Mammo Bilat Implant Screen W [place] (02/15/2025 11:26 AM CDT) Anatomical Region Laterality Modality Breast Bilateral Mammography 02/16/2025 3:37 PM CDT Impressions 02/16/2025 3:40 PM CDT IMPRESSION: No mammographic evidence of malignancy in either breast. ASSESSMENT: BI-RADS CATEGORY 1: NEGATIVE. RECOMMENDATION: Bilateral screening mammogram in one year. Thank you for allowing us to participate in the care of your patient. [facility] utilizes [employer] as a reminder system to notify patients of their next recommended mammogram. > Interpreting Provider: Ruthie Tinajero MD on 02/16/2025 3:40 PM Narrative 02/16/2025 3:40 PM CDT EXAMINATION: Digital screening mammogram. Low-dose full-field digital breast tomosynthesis examination was performed with synthetic 2D images. Computer assisted detection was utilized. DATE: 02/15/2025 11:39 AM PRIOR: 2022 and prior mammograms dating back to 2019. BREAST PARENCHYMAL DENSITY: Category B: There are scattered areas of fibroglandular density. FINDINGS: Silicone implants are unchanged. No suspicious masses, areas of architectural distortion or microcalcifications are evident on synthetic 2D mammogram or tomosynthesis images. There has been no significant interval change since the prior examination. us Ariane Lam MD MAMMO ORDERABLES Final Result from Last 3 Months or Most Recently Relevant to Health Maintenance Insurance [facility] Care Teams Fire Engineer Relationship Specialty Start Date End Date Caryn Corbin DO [address] [place] [address] PCP - General 05/05/22
[2025-06-27 06:53] VITALS: BP 122/69; PULSE 73; RESP 16; TEMP 36.4; O2SAT 100
--- OUTSIDE RECORDS SUMMARY | 2025-06-27 07:37 | XMS_ITS | Clinical Summary ---
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 Gender Identity Female 01/25/2022 8:55 AM CDT [...] A M CDT Height 165.1 cm (5' 5) 10/23/2019 7:37 AM CDT Body Mass Index 24.33 10/23/2019 7:37 AM CDT Plan of Treatment Health Maintenance Due Date Last Done Comments Hepatitis B Vaccines (1 of 3 - 19+ 3-dose series) 1990 Pneumococcal Vaccine: 50+ Years (1 of 1 - PCV) 2021 Zoster Vaccines (1 of 2) 2021 Annual Physical 01/28/2023 01/28/2022, 0712/2020, 10/23/2019 Mammogram Screening 07/16/2023 07/16/2021 COVID-19 Vaccine ( season) 2025 08/20/2021, 09/17/2020, 08/27/2020 Influenza Adult (#1) 2025 06/16/2020, 07/16/2019, 06/07/2019, Additional history exists DTaP, Tdap and Td Vaccines (3 - Td or Tdap) 10/22/2029 10/23/2019, 10/23/2019 Colorectal Cancer Screening Colonoscopy (10 Years) 04/29/2032 04/29/2022 Hepatitis C Completed 03/02/2022 Hepatitis A Vaccines Aged Out No long er eligible based on patient's age to complete this topic Meningococcal B Vaccine Aged Out No l [...] Most Recently Relevant to Health Maintenance Insurance [facility] Care Teams Rn Lvn Relationship Specialty Start Date End Date Caryn Corbin DO [address] [place] [address] PCP - General FAMILY PRACTICE 10/23/19
--- OUTSIDE RECORDS SUMMARY | 2025-06-27 07:37 | XMS_ITS | Clinical Summary ---
Author Organization [facility] Address [address] [place] [address] Phone Care Team Providers Care Utilization Review Specialist Name Role Phone Unavailable Primary Care Provider [...] on file Legal Sex Female 9:53 AM WARP DOFFER Gender Identity Not on file Sexual Orientation Not on file Last Filed Vital Signs Vital Sign Reading Time Taken Comments Blood Pressure 106/65 10/07/2019 10:05 AM WARP DOFFER Pulse 64 10/07/2019 10:05 AM WARP DOFFER Temperature 36.5 C (97.7 F) 10/07/2019 10:05 AM WARP DOFFER Respiratory Rate 16 10/07/2019 10:05 AM WARP DOFFER Oxygen Saturation 100% 10/07/2019 10:05 AM WARP DOFFER Inhaled Oxygen Concentration - - Weight 64.4 kg (142 lb) 10/07/2019 6:10 AM WARP DOFFER Height 165.1 cm (5' 5) 10/07/2019 6:10 AM WARP DOFFER Body Mass Index 23.63 10/07/2019 6:10 AM WARP DOFFER Plan of Treatment Health Maintenance Due Date [...] 2025 05/07/2021 Medical Devices Implanted Type Area Food And Beverage Lead Device Identifier Shelf Expiration Date Model / Serial / Lot Breast Silicone Smth Rnd Hp [id number] - [id number] Implanted:Qty: 1 on 10/07/2019 by Abdullahi Silva MD at [facility] Mammary Right: Breast MENTOR CLARA 08/07/2023 [id number] / / [id number] Description: Cosmetic- implant brought in by surgeon Breast Silicone Smth Rnd Hp [id number] - [id number] Implanted:Qty: 1 on 10/07/2019 by Abdullahi Silva MD at [facility] Mammary Left: Breast MENTOR CLARA 01/20/2020 [id number] / / [id number] Description: Cosmetic- implant brought in by surgeon Explanted Type Area Food And Beverage Lead Device Identifier Shelf Expiration Date Model / Serial / Lot Right Breast Implant Explanted:Qty: 1 on 10/07/2019 by Abdullahi Silva MD at [facility] Right: Breast Left Breast Implant Explanted:Qty: 1 on 10/07/2019 by Abdullahi Silva MD at [facility] Left: Breast Insurance RX [facility] [employer] RX OPT[employer] RX Member Subscriber Plan / Payer (Ef fective 2023-Present) Name:WellingtonDanita rashid Relation to Subscriber:Self Name:WellingtonDanita rashid Subscriber ID:Not on file Payer ID:Not on file Type:RX Commercial Address: [address] Advance Directives For more information, please contact: [phone] * Full Code (Latest Code Status on File) Date Activated Date Inactivated Comments 10/07/2019 8:56 AM 10/07/2019 12:29 PM
--- OUTSIDE RECORDS SUMMARY | 2025-06-27 07:37 | XMS_ITS | Clinical Summary ---
Author Organization [facility] Address [address] [place] [address] Care Team Providers Care Vp Business Development Name Role Phone Caryn Corbin DO Primary Care Provider [phone] Source Comments [facility],non-owned Affiliates and Associated Physician Practices is amultiple site organization consisting of ambulatory clinics and hospital sitesin [place], [place], [place] and [place]. This disclosure is being madepursuant to the Care Everywhere program and may not contain all information available regarding this patient. 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 [facility] utilizes [employer] as a reminder system to notify patients [...] Most Recently Relevant to Health Maintenance Insurance [facility] Care Teams Vp Business Development Relationship Specialty Start Date End Date Caryn Corbin DO [address] [place] [address] PCP - General 05/05/22
[2025-06-27] MEDS: KETOROLAC 30 MG/ML VIAL (*BKC) IV PUSH (07:41)
[2025-06-27 07:49] LABS: Hematocrit 36.3 % (37.0-47.0); Hemoglobin 12.1 g/dL (12.0-15.0); Immature Granulocyte Percent A 0.5 % (0-0.5); Lymphocytes Absolute Auto 1.65 K/mm3 (0.9-3.2); Mean Corpuscular HGB Conc 33.3 g/dl (32-36); Mean Corpuscular Hemoglobin 31.3 pg (26-34); Mean Corpuscular Volume 94.0 fl (80-100); Nucleated Red Blood Cells Absolute Auto 0.000 K/mm3 (0.0-0.012); Nucleated Red Blood Cells Perc 0.0 % (0.0-0.2); Platelet Count Result 334 k/mm3 (150-375); Red Blood Count 3.86 M/mm3 (4.2-5.4); White Blood Count 5.5 K/mm3 (4.5-10.0)
--- NOTE | 2025-06-27 08:04 | ED.DENTAL ---
HPI - Dental/Oral General Chief complaint: Dental/Oral Stated complaint: Swollen throat/dental Time Seen by Provider: 06/27/25 07:06 History of Present Illness HPI Narrative: Patient is a 54-year-old female who presents to the ER with concerns for dental infection. She had tooth number 32 extracted on 06/20/2025. A day later she started having right-sided facial swelling and pain. She had been taking hydrocodone for discomfort. On 06/22/2025 she was started on amoxicillin, the next day she was switched to cephalexin. She continues to have swelling and pain. Yesterday she was started on Augmentin. She has some trismus and pain with chewing. She has no difficulty breathing or swallowing. She has been doing warm salt water rinses. She did have emesis last week related to a side effect of hydrocodone. Related Data Home Medications ?Medication ?Instructions ?Recorded ?Confirmed ?Last Taken ?Type estradiol 2 mg tablet 2 mg PO DAILY 03/22/22 06/18/25 04/28/22 History multivitamin 1 tablet PO DAILY 03/27/23 06/18/25 Unknown History Allergies Allergy/AdvReac Type Severity Reaction Status Date / Time cows milk Allergy Nausea and Uncoded 06/18/25 14:23 Vomiting Review of Systems Review of Systems: All systems reviewed & are unremarkable except as noted in HPI and below Constitutional: Constitutional: Reports no additional constitutional complaints ENT: Reports system reviewed and no additional complaints, except as documented Cardiovascular: Cardiovascular: Reports no additional cardiovascular complaints Gastrointestinal: Gastrointestinal: Reports no additional gastrointestinal complaints PMFSH Past Medical History Medical History Adhesive capsulitis of left shoulder Allergies Surgical History Surgical History H/O breast augmentation Hx of tubal ligation Hx of prior ablation treatment Hx of hysterectomy Family History Family History Father Diabetes mellitus Hypertension Cerebrovascular accident Mother Asthma Hypertension Depression Other Anxiety Heart disease Social History Social History (Updated 04/14/25 @ 08:50 by Portia Guzman CMA) Smoking status: Former smoker Second hand tobacco smoke exposure: No Alcohol intake: current Drinks per week: 7 Alcohol use details: 1 drink daily. Substance use: never Substance use type: does not use Do You Feel Safe in your Home?: Yes Lack of Transportation: No Lack of Food: Never True Current Housing: I Have Housing Concerned About Future Housing: No Difficulty Paying Gas/Electric Bills: No Difficulty Paying for Meds: No Currently Unemployed: No Education: High School Diploma/GED Difficulty w/ Childcare or Family Care: No Living arrangements: with family Gender identity (if verbalized by the patient): Female Spiritual care concerns: No Agree to blood products: Yes Exam Narrative: GENERAL: Well-appearing, well-nourished, and in no acute distress. HEAD: Normocephalic, atraumatic. ENT: Mucous membranes moist. Mild swelling of the right mandible and submandibular lymphadenopathy. Mild trismus. Normal tongue size. There is an open recess where tooth 32 once lived. No overt abscess or drainage. Tonsils normal. PULM: No respiratory distress, no stridor, speaks in a normal manner. NECK: Supple EXTREMITIES: Normal range of motion. No edema. SKIN: Warm, dry, no rash. NEURO: Alert and oriented x3. PSYCH: Normal mood and affect. Course Course Emergency Course: Educated on imaging and lab results. Appropriate for discharge home. Will give anti-inflammatories muscle relaxers. Patient request Diflucan for yeast infection as well. Vital Signs Vital signs: Vital Signs Temperature 97.6 F 06/27/25 06:53 Pulse Rate 73 06/27/25 06:53 Respiratory Rate 16 06/27/25 06:53 Blood Pressure 122/69 06/27/25 06:53 Pulse Oximetry 100 06/27/25 06:53 Temperature 97.6 F 06/27/25 06:53 Pulse Rate 73 06/27/25 06:53 Respiratory Rate 16 06/27/25 06:53 Blood Pressure 122/69 06/27/25 06:53 Pulse Oximetry 100 06/27/25 06:53 MDM - Dental/Oral Differential Diagnosis Differential diagnosis: Likely dental caries, toothache, dental abscess and other (Osteomyelitis) Lab Data Attestation: I reviewed the patient's lab results. 06/27/25 07:44 06/27/25 07:44 Labs: Lab Results 06/27/25 Range/Units 07:44 WBC 5.5 (4.5-10.0) K/mm3 RBC 3.86 L (4.2-5.4) M/mm3 Hgb 12.1 (12.0-15.0) g/dL Hct 36.3 L (37.0-47.0) % MCV 94.0 (80-100) fl MCH 31.3 (26-34) pg MCHC 33.3 (32-36) g/dl RDW 11.7 (11.5-14.5) % Plt Count 334 (150-375) k/mm3 MPV 9.6 (7.4-10.4) fl Immature Gran % (Auto) 0.5 (0-0.5) % Neut % (Auto) 56.3 (45.5-73.1) % Lymph % (Auto) 30.1 (18.3-44.2) % [place] % (Auto) 9.1 H (2.6-8.5) % Eos % (Auto) 3.1 (0-4.4) % Baso % (Auto) 0.9 (0.2-1.2) % Lymph # (Auto) 1.65 (0.9-3.2) K/mm3 [place] # (Auto) 0.5 (0.1-0.6) K/mm3 Eos # (Auto) 0.2 (0-0.3) K/mm3 Baso # (Auto) 0.1 (0.0-0.1) K/mm3 Abs Immat Gran (auto) 0.03 (0.00-0.031) K/mm3 Absolute Neuts (auto) 3.1 (1.3-6.7) K/mm3 Absolute Nucleated RBC 0.000 (0.0-0.012) K/mm3 Nucleated RBC % 0.0 (0.0-0.2) % Sodium 135 L (137-145) mmol/L Potassium 4.6 (3.4-5.0) mmol/L Chloride 99 (98-107) mmol/L Carbon Dioxide 30 (22-30) mmol/L Anion Gap 6 (4-12) mmol/L BUN 4 L D (7-17) mg/dL Creatinine 0.69 L (0.7-1.0) mg/dL Estim Creat Clear Calc 73 ml/min Estimated GFR > 60 (59 - ) Glucose 84 (65-110) mg/dL Calcium 9.4 (8.4-10.2) mg/dL Imaging Data Radiologist's impression: ITS Impressions Soft Tissue Neck CT 06/27/25 08:33 IMPRESSION: 1. Mild asymmetric swelling of the right pharyngeal mucosal space and obscuration of the fat plane intervening between it and the alteration inspector space which given the provided history of recent extraction of the right posterior most mandibular molar is most likely inflammatory or infectious in etiology. No evident abscess identified although evaluation of the soft tissues is mildly limited along the plane of multiple dental restorations. 2. Mild likely reactive right level 2 jugular and submandibular lymphadenopathy. Discharge Plan Discharge Clinical Impression: Dry tooth socket Patient Disposition: Home Condition: Stable Instructions: Antibiotic Form, Dry Socket (ED) Additional Instructions: Continue your Augmentin. Take chlorhexidine mouthwash. You may also ice your jaw and take anti-inflammatories/muscle relaxers. Follow up with your dentist. Patient Language: Maori Prescriptions: New cyclobenzaprine 10 mg tablet 10 mg PO TID PRN (Reason: muscle spasm) Qty: 20 0RF naproxen 375 mg tablet 375 mg PO BID Qty: 14 0RF chlorhexidine gluconate 0.12 % mouthwash 15 ml mucous membrane BID Qty: 300 0RF fluconazole 150 mg tablet 150 mg PO ONCE Qty: 1 0RF Rx Instructions: as a single dose No Action estradiol 2 mg tablet 2 mg PO DAILY multivitamin Tablet 1 tablet PO DAILY Follow-up/Referrals: Genaro,MD Ariane [Primary Care Provider, Family Practice]
[2025-06-27 08:08] LABS: Anion Gap 6 mmol/L (4-12); Blood Urea Nitrogen 4 mg/dL (7-17); Calcium 9.4 mg/dL (8.4-10.2); Carbon Dioxide 30 mmol/L (22-30); Chloride 99 mmol/L (98-107); Estimated CRCL calculation 73 ml/min; Estimated Glomerular Filt Rate > 60; Glucose 84 mg/dL (65-110); Potassium 4.6 mmol/L (3.4-5.0); Sodium 135 mmol/L (137-145)
[2025-06-27 09:44] VITALS: BP 121/73; PULSE 65; RESP 16; O2SAT 100
[2025-06-27 10:05] VITALS: BP 117/69; PULSE 70; RESP 18; TEMP 36.9; O2SAT 99
== END 2025-06-27 10:03 | disposition home or self-care (01) ==
PROVIDERS: Emergency Provider Emergency Medicine; PCP Family Medicine
DX: M27.3 Alveolitis of jaws (principal); Z87.891 Personal history of nicotine dependence
CPT/HCPCS: 36415; 70491; 80048; 85025; 96374; 99284; J1885; Q9967

== ENCOUNTER 2025-07-29 08:19 | Outpatient (CLI) | payer OTHER, SELFPAY ==
--- NOTE | ~2025-07-29 | MR_ITS ---
EXAMINATION: MR shoulder RT wo con DATE: 07/29/2025 08:54 INDICATION: Adhesive capsulitis at the right shoulder with nearly one year of right shoulder pain TECHNIQUE: Magnetic resonance imaging (MRI) of the right shoulder was performed without intravenous contrast. Sequences included axial PD-weighted FS FSE, coronal oblique PD-weighted FS FSE, coronal oblique T2-weighted FS FSE, sagittal PD-weighted FS FSE, and sagittal T1-weighted SE. COMPARISON: None. FINDINGS: Coracoacromial arch: The acromion undersurface is curved in morphology (type II). The coracoacromial ligament is normal. Minimal acromioclavicular osteoarthritis. Rotator cuff: The supraspinatus, infraspinatus and teres minor tendons are normal. The subscapularis tendon is normal. Normal rotator cuff muscle bulk and signal. The biceps norbert sling at the rotator cuff interval appears normal. Biceps tendon, glenoid labrum and glenohumeral cartilage: Long head of the biceps tendon is normal. Glenoid labrum is normal. Glenohumeral cartilage is normal. Fluid: Minimal glenohumeral joint effusion. No loose osteochondral bodies. No abnormal increased fluid signal in the subacromial/subdeltoid bursa to suggest bursitis. Bones/other: Normal marrow signal with no edema, fracture or abnormal marrow replacing process. No abnormal thickening of the joint capsule at the axillary recess or abnormal soft tissue at the rotator cuff interval where there is normal fat signal to suggest adhesive capsulitis. IMPRESSION: 1. Minimal right glenohumeral joint effusion. Otherwise unremarkable MRI of the right shoulder. Specifically there is no abnormal thickening of the joint capsule or increased soft tissue density at the rotator cuff interval to suggest adhesive capsulitis which is ultimately a clinical diagnosis. Reviewed, dictated and finalized at location A. TIC INSTALLER IMPRESSION: 1. Minimal right glenohumeral joint effusion. Otherwise unremarkable MRI of the right shoulder. Specifically there is no abnormal thickening of the joint caps ule or increased soft tissue density at the rotator cuff interval to suggest ad hesive capsulitis which is ultimately a clinical diagnosis.
== END 2025-07-29 08:20 | disposition home or self-care (01) ==
LOC: MICIMG 08:19
PROVIDERS: PCP Student in an Organized Health Care Education/Training Program; Visit Provider Orthopaedic Surgery
DX: M75.01 Adhesive capsulitis of right shoulder (principal)
CPT/HCPCS: 73221